=== PATIENT | male | born 1955 | race Caucasian/White ===

== ENCOUNTER → 2018-02-24 | Outpatient (CLI) | payer MEDICAID ==
[~2018-02-24] MED LIST: ACCUNEB SO1.25 MG/1 INH; ADULT LOW DOSE81 MG PO; ALDACTONE25 MG PO; ASPIRIN EC81 M1 PO; CARVEDILOL6.25 MG PO; COREG6.25 MG PO; HYDRALAZINE 5050 M1 PO; HYDROCODON-ACE1 EAC7 PO; IBUPROFEN 400400 M1 PO; IBUPROFEN 800800 M1 PO; IMDUR 30 MG TAB30 M1 PO; IMDUR 30 MG TAB30 MG PO; IMDUR120 MG PO; LEVOTHYROXINE0.05 MG PO; LIPITOR40 MG PO; LISINOPRIL20 MG PO; LISINOPRIL40 MG PO; NICOTINE TRANSD14 M1 TD; NORCO 5-325 TA1 EACH PO; PLAVIX 75 MG TA75 M1 PO; SIMVASTATIN10 MG PO; SPIRONOLACTONE25 M1 PO; SYMBICORT160 MCG/4. INH; SYNTHROID50 MCG PO; VICODIN 5-5001 EACH PO; VITAMIN D1000 UNI1 PO; VITAMIN D5000 UNIT PO; ZESTRIL20 MG PO; ZOFRAN 4 MG ORAL4 MG PO
== END ==
LOC: M.RAD 11:00
DX: M25.522 Pain in left elbow (principal)

== ENCOUNTER 2018-03-29 06:58 | Inpatient (IN) | payer MEDICAID ==
[2018-03-29] VITALS (22 sets, daily range): BP systolic 110–159; BP diastolic 49–85
[~2018-03-29] VITALS: Ht 170.2 cm; Wt 57.6 kg
[~2018-03-29 06:58] MED LIST changes: -HYDROCODON-ACE1 EAC7 PO; -NORCO 5-325 TA1 EACH PO
[2018-03-29 08:43] LABS: ABSOLUTE BASOPHILS 0.1 thou/uL (0.0-0.2); ABSOLUTE EOSINOPHILS 0.2 thou/uL (0.0-0.7); ABSOLUTE LYMPHOCYTES 2.6 thou/uL (0.8-5.3); ABSOLUTE MONOCYTES 0.9 thou/uL (0.0-1.2); ABSOLUTE NEUTROPHILS 4.9 thou/uL (1.6-8.1); BASOPHILS 1.1 %; EOSINOPHILS 2.7 %; HEMATOCRIT 37.6 % (42.0-52.0); HEMOGLOBIN 12.6 gm/dL (14.0-18.0); LYMPHOCYTES 29.8 %; MCH 33.4 pg (26.0-34.0); MCHC 33.4 g/dL (28.0-37.0); MCV 99.8 fL (80.0-100.0); MONOCYTES 10.3 %; MPV 8.6 fl. (7.2-11.1); NUCLEATED RBCS 0 /100WBC; PLATELET COUNT* 230 thou/uL (150-400); POLYS 56.1 %; RBC 3.76 mil/uL (4.50-6.00); RDW-CV 14.8 % (10.5-14.5); WBC 8.7 thou/uL (4.0-11.0)
[2018-03-29 08:49] LABS: CALCIUM 8.7 mg/dL (8.5-10.1); CREATININE 1.5 mg/dL (0.6-1.3); POTASSIUM 3.8 mmol/L (3.5-5.1)
[2018-03-29 15:01] LABS: HEMATOCRIT 33.3 % (42.0-52.0); HEMOGLOBIN 11.1 gm/dL (14.0-18.0); MCHC 33.3 g/dL (28.0-37.0); MCV 99.1 fL (80.0-100.0); MPV 8.2 fl. (7.2-11.1); RBC 3.36 mil/uL (4.50-6.00); RDW-CV 14.9 % (10.5-14.5); WBC 8.6 thou/uL (4.0-11.0)
[2018-03-29 15:06] LABS: POTASSIUM 4.2 mmol/L (3.5-5.1)
--- NOTE | 2018-03-29 15:18 | EKG ---
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 : 1955 Requested By: Thee Miller Order Number: [id number] Reading MD: Bala Lund Measurements Intervals [place] Rate: 43 P: 67 NE: 200 QRS: -55 QRSD: 114 T: 33 QT: 483 QTc: 409 Interpretive Statements Sinus bradycardia LAD, consider left anterior fascicular block Compared to ECG 03/14/2013 21:08:40 Sinus rhythm no longer present T-wave abnormality no longer present Prolonged QT interval no longer present Electronically Signed On 03-29-2018 15:18:20 CDT by Bala Lund [email or web address] <ELECTRONICALLY SIGNED> By: Bala Lund MD, [facility] 03/29/18 1518 0856 0856 Bala Lund MD, [facility] /EPI
--- NOTE | 2018-03-29 18:41 | NUR ---
PT ADMITTED FROM SURGERY. SB ON MONITOR. LOW 30'S. DR SOLIS NOTIFIED. CARDIOLOGY CONSULT ORDERED. DR ELLINGTON D/C'D CLONIDINE. IVF INFUSING. ART LINE IN PLACE. R COROTID SURGICAL AREA C/D/I. PRN PAIN MEDICATION GIVEN PER PT REQUEST. FALL PRECAUTIONS IN PLACE INCLUDING BED ALARM. PROGRESSING TOWARDS SOME GOALS.
[2018-03-30] VITALS (8 sets, daily range): BP systolic 112–187; BP diastolic 49–90
[2018-03-30] MEDS ORDERED: HYDROCODON-ACE1 EAC7 PO (07:10)
[2018-03-30 09:46] LABS: CALCIUM 9.1 mg/dL (8.5-10.1); CREATININE 1.7 mg/dL (0.6-1.3); POTASSIUM 4.1 mmol/L (3.5-5.1)
--- NOTE | 2018-03-30 13:25 | NUR ---
PATIENT DCD HOME WITH INSTRUCTIONS CLEARED WITH INSTRUCTIONS TO RETURN IF SWALLOWING INVOLVED. AT BEDSIDE TOOK PATIENT HOME.
--- NOTE | 2018-03-30 14:40 | OP ---
[facility] [address] [place] [address] OPERATIVE REPORT Name: CAMILO FARIA HAMLET Room: [address] IN M.R.#: [id number] Admission: 03/29/18 Attend Phys: Leatha Doty Discharge: 03/30/18 Date of : 57 Report #: [id number] THIS REPORT FOR: //name// CC: Chuyita Schofield DATE OF SERVICE: 03/29/2018 PREOPERATIVE DIAGNOSIS: Asymptomatic right carotid stenosis. POSTOPERATIVE DIAGNOSIS: Asymptomatic right carotid stenosis. SURGEON: Thee Miller DO. HEATER OPERATOR HELPER: EVIE Collins. ANESTHESIA: General endotracheal anesthesia. PROCEDURE: 1. Right carotid endarterectomy with bovine pericardial patch angioplasty. 2. Intraoperative arterial duplex. ESTIMATED BLOOD LOSS: 100 mL. SPECIMEN: Plaque. COMPLICATIONS: None. CONDITION: Stable. DISPOSITION: ICU. INDICATIONS FOR THE PROCEDURE AND CONSENT: The patient is a 62-year-old male who presented with peripheral vascular disease and carotid stenosis. He is identified to have a severe greater than 70% stenosis of the right internal carotid artery. Recommendation for right carotid endarterectomy was made. Risks and benefits were discussed, infection, bleeding, need for additional procedures, nerve injury, stroke, heart attack and . The patient wished to proceed, was consented and scheduled. PROCEDURE IN DETAIL: After timeout was performed, the patient was placed in supine position with sterile prep and drape of the anterior neck and chest wall. Semi-transverse incision was made anterior to the sternocleidomastoid and dissection carried down using Bovie electrocautery. The facial vein was identified, dissected sharply and then ligated and divided between 2-[address] [address] OPERATIVE REPORT Name: CAMILO FARIA Room: [address] IN .R.#: [id number] Admission: 03/29/18 Attend Phys: Leatha Doty Discharge: 03/30/18 Date of : 57 Report #: [id number] sutures. Common carotid artery was then identified and dissected sharply and controlled proximally with a Shara tourniquet. The external and internal carotid arteries were then sharply dissected and a small vessel was placed posterior to the internal carotid artery to help with control. The external carotid artery was then controlled with vessel loop. The patient was then systemically heparinized with 6000 units of heparin, allowed to circulate for 2 minutes. Internal, external and common carotid arteries then controlled and 11 blade and Raman scissors used to make a longitudinal arteriotomy. A #14 shunt was advanced into the internal carotid artery without difficulty and noted to backbleed well and then placed within the common carotid artery and secured. Plaque elevator was then used to perform the endarterectomy and the external carotid artery was everted well. The end portion tapered nicely. However, the intimal flap appeared to be somewhat mobile. I tacked this with two 7-0 Prolene sutures on the back wall to assist with immobilization. The endarterectomized portion was then meticulously cleaned with forceps and all debris was removed. The area was irrigated multiple times with hep saline and no additional flaps or debris was identified. A 0.8 x 8 bovine pericardial patch was then selected and sutured in place with 6-0 Prolene. Once this was near complete, the shunt was then removed and clamps reapplied. The area was then irrigated again to remove any potential debris and the external and common carotid arteries were allowed to bleed and the area irrigated once more and then the patch closed completely. Blood flow was then restored to the external carotid artery without difficulty, without concern and then the blood flow restored to the internal carotid artery. Patch was noted to be hemostatic. I then performed intraoperative duplex, which demonstrated appropriate waveforms and no intimal debris or anatomic concerns. Please see saved images. Wound was then copiously irrigated. There was a small amount of oozing from the patch in the mid portion on the inferior side and a 7-0 Prolene was used to achieve hemostasis in this area. The wound was then again irrigated. Jj was applied. The patient was administered 50 units of protamine as a reversal agent. Once the wound was dry the wound was then closed in layers using 2-0 Vicryl, 3-0 Vicryl and 4-0 Monocryl suture. Dermabond dressing was applied. The patient tolerated the procedure well. All lap, needle, and instrument counts correct. <ELECTRONICALLY SIGNED> By: Thee Miller DO 03/30/18 1440 1405 1426Thee Miller DO /nt
--- NOTE | 2018-04-05 15:09 | PATH ---
[facility] [address] [place] [address] PATHOLOGY RPT PROCEDURE Name: CAMILO SCHAEFFER Room: [address] IN M.R.#: [id number] Admission: 03/29/18 Date of : 57 Discharge: 03/30/18 Report #: [id number] Path Case #: [id number] LCA Accession Number: [id number] . 01 Material submitted: . RIGHT CAROTID PLAQUE . 01 Clinical history: . Right carotid plaque . 02 Diagnosis: Right carotid plaque: - Fibrointimal atherosclerotic plaque with extensive calcification. (BASHIR:norman; 04/02/2018) QMS/04/02/2018 . 02 Electronically signed: . Bishnu Berrios MD, Pathologist NPI- [id number] . 01 Gross description: . Received in formalin "Camilo Schaeffer, right carotid plaque" is a bifurcated and previously opened segment of atherosclerotic plaque (with calcific changes) measuring 3.2 cm in length with diameter ranging from 0.3 cm-1.4 cm. There is 60% stenosis of the lumen. Automatic Corn Grinder Operator sections are submitted as A1. (ALEJANDRA; 03/30/2018) JBR/JBR . 02 Pathologist provided ICD-10: I65.21 . 02 CPT . 437862 Performed at: [address], [place] [id number] MD Jose Owen MD Phone: [phone] Performed at: 02 [facility] [address], [place], [place] [address] MD Bishnu Berrios MD Phone: [phone]
== END 2018-03-30 13:35 | disposition home or self-care (01) | DRG 39 ==
LOC: M.PRE 06:58 → M.TBA 07:57 → M.PRE 10:40 → M.ICU 15:12
PROVIDERS: Internal Medicine; Surgery; ADMIT Internal Medicine
PROC: 03CK0ZZ Extirpation of Matter from Right Internal Carotid Artery, Open Approach (ICD-10-PCS; principal; 2018-03-29)
PROC: 03UK0JZ Supplement Right Internal Carotid Artery with Synthetic Substitute, Open Approach (ICD-10-PCS; principal; 2018-03-29)
PROC: 039 Upper Arteries, Drainage (ICD-10-PCS; principal; 2018-03-29)
DX: I65.21 Occlusion and stenosis of right carotid artery (principal); I73.9 Peripheral vascular disease, unspecified; E78.5 Hyperlipidemia, unspecified; E03.9 Hypothyroidism, unspecified; F17.210 Nicotine dependence, cigarettes, uncomplicated; J44.9 Chronic obstructive pulmonary disease, unspecified; I12.9 Hypertensive chronic kidney disease with stage 1 through stage 4 chronic kidney disease, or unspecified chronic kidney disease; N18.9 Chronic kidney disease, unspecified; Z79.899 Other long term (current) drug therapy; Z88.0 Allergy status to penicillin; Z95.820 Peripheral vascular angioplasty status with implants and grafts; Z82.49 Family history of ischemic heart disease and other diseases of the circulatory system

== ENCOUNTER 2018-06-01 10:49 | Inpatient (IN) | payer MEDICAID ==
[~2018-06-01] VITALS: Ht 180.3 cm; Wt 56.2 kg
[~2018-06-01 10:49] MED LIST changes: +HYDROCODON-ACE1 EAC7 PO
[2018-06-01 11:00] VITALS: BP 160/88
[2018-06-01 11:25] LABS: ABSOLUTE BASOPHILS 0.1 thou/uL (0.0-0.2); ABSOLUTE EOSINOPHILS 0.3 thou/uL (0.0-0.7); ABSOLUTE MONOCYTES 0.8 thou/uL (0.0-1.2); ABSOLUTE NEUTROPHILS 4.8 thou/uL (1.6-8.1); BASOPHILS 0.9 %; EOSINOPHILS 3.4 %; HEMATOCRIT 40.6 % (42.0-52.0); HEMOGLOBIN 13.8 gm/dL (14.0-18.0); LYMPHOCYTES 25.6 %; MCV 99.9 fL (80.0-100.0); MONOCYTES 9.6 %; MPV 8.1 fl. (7.2-11.1); NUCLEATED RBCS 0 /100WBC; PLATELET COUNT* 257 thou/uL (150-400); POLYS 60.5 %; RBC 4.06 mil/uL (4.50-6.00); RDW-CV 14.6 % (10.5-14.5); WBC 7.9 thou/uL (4.0-11.0)
[2018-06-01 11:32] LABS: CREATININE 1.6 mg/dL (0.6-1.3); POTASSIUM 3.6 mmol/L (3.5-5.1)
--- NOTE | 2018-06-01 14:38 | EKG ---
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
[2018-06-01 16:22] LABS: MCH 33.6 pg (26.0-34.0); MCHC 33.7 g/dL (28.0-37.0); MCV 99.8 fL (80.0-100.0); MPV 8.2 fl. (7.2-11.1); RBC 3.3 mil/uL (4.50-6.00); RDW-CV 14.6 % (10.5-14.5); WBC 7.9 thou/uL (4.0-11.0)
[2018-06-01 16:25] LABS: HEMOGLOBIN 11.1 gm/dL (14.0-18.0)
[2018-06-01 16:47] LABS: CALCIUM 8.2 mg/dL (8.5-10.1); CREATININE 1.4 mg/dL (0.6-1.3); POTASSIUM 4.3 mmol/L (3.5-5.1)
[2018-06-01 17:43] VITALS: BP 161/91
--- NOTE | 2018-06-01 18:20 | NUR ---
PT TO ROOM VIA CART. PT ORIENTED TO ROOM,CALL LIGHT WITHIN REACH. PT DENIES PAIN,REPORTS NAUSEA. MEDS GIVEN ORDERED. AT BS AND UPDATED ON CARE
[2018-06-01 20:00] VITALS: BP 135/81
[2018-06-01 22:00] VITALS: BP 120/68
[2018-06-02] VITALS: BP 111/70
--- NOTE | 2018-06-02 04:56 | NUR ---
ASSUMED OF PT AT 1900 PT ALERT AND ORIENTED X4 VS AND ASSESSMENT STABLE, Q1H NEUROVASCULAR CHECKS TO THE RLE THEN Q4H COMPLETED PT SB TO NS ON THE MONITOR. PT HAVING N/V AT THE BEGINING OF THE SHIFT CONTACTED DR ALVARADO OBTAINED ORDERS FOR PO PHENERGAN AND ADMINISTERED PTS NAUSEA RESOLVED AND PT HAD NO FURTHER COMPLAINTS AND SLEPT THROUGH THE NIGHT. WILL CONTINUE PLAN OF CARE
[2018-06-02 10:00] VITALS: BP 122/70
[2018-06-02 10:08] VITALS: BP 109/56
[2018-06-02] MEDS ORDERED: NORCO 5-325 TA1 EACH PO (10:37)
--- NOTE | 2018-06-02 11:14 | NUR ---
PT CARE ASSUMED AFTER REPORT. ASSESSMENT COMPLETE. SR ON MONITOR. PT DISCHARGED HOME. HERE TO TRANSPORT. DISCHARGE INSTRUCTIONS WITH EXPLAINATION TO PT AND HIS SHANNON. BOTH VERBALIZED UNDERSTANDING. PRESCRIPTION FOR NORCO GIVEN TO PT. IV ACCESS REMOVED. SURGICAL AREA C/D/I UPON LEAVING. PT TOOK ALL BELONGINGS.
--- NOTE | 2018-06-19 12:02 | OP ---
[address] [address] OPERATIVE REPORT Name: JEAN SCHAEFFER Room: [address] IN M.R.#: [id number] Admission: 06/01/18 Attend Phys: Leatha Doty Discharge: 06/02/18 Date of : 57 Report #: [id number] THIS REPORT FOR: //name// CC: Ahmaleatha Schofield DATE OF SERVICE: 06/01/2018 PREOPERATIVE DIAGNOSES: Peripheral vascular disease, claudication, right lower extremity. POSTOPERATIVE DIAGNOSES: Peripheral vascular disease, claudication, right lower extremity. SURGEON: Thee Miller DO. CASING IN LINE FEEDER: Orthopedic resident, PGY-1. ANESTHESIA: General endotracheal anesthesia. ESTIMATED BLOOD LOSS: 500 mL. SPECIMEN: None. IMPLANT: None. COMPLICATIONS: None. CONDITION: Stable. DISPOSITION: ICU. INDICATIONS FOR THE PROCEDURE AND CONSENT: Jean Schaeffer is a 63-year-old man presented with severe peripheral vascular disease and carotid stenosis. He underwent carotid endarterectomy and is subsequently here for right common femoral endarterectomy. Risks and benefits were discussed, infection, bleeding, heart attack, stroke, , limb loss, need for additional procedures. The patient wished to proceed, was consented and scheduled. PROCEDURE IN DETAIL: After timeout was performed, the patient was placed in supine position with sterile prep and drape of the anterior and bilateral groins, bilateral thighs. A semi-transverse incision was made overlying the common femoral artery and the external iliac artery, the superficial femoral artery and profunda vessels were all wrapped with vessel loops. Several large collaterals were also encircled with Raman vessel loops. The patient was systemically heparinized with 6000 units of heparin. The external iliac artery [address] [address] OPERATIVE REPORT Name: JEAN SCHAEFFER Room: [address] IN M.R.#: [id number] Admission: 06/01/18 Attend Phys: Leatha Doty Discharge: 06/02/18 Date of : 57 Report #: [id number] was noted to be quite calcified and a large profunda clamp was required to clamp it to make the pulse go away. The vessel loops were then pulled up and an 11 blade and Raman scissors were used to make a longitudinal arteriotomy. Plaque elevator was used to remove the femoral plaque, which was nearly occlusive. A large Meseret clamp was used to remove the external iliac plaque proximally with majority of blood loss here. Once this was all removed, the clamp was reapplied. The clamp had to be clamped and unclamped several times to limit blood loss during removal of the external iliac plaque. Once this was accomplished, the clamp was reapplied and noted to be hemostatic. The profunda and superficial femoral vessels were noted to backbleed well. The endarterectomized portion was cleaned with forceps and irrigated with hep saline. Bovine pericardial patch was then selected and sutured in place with 5-0 Prolene suture without difficulty. The very proximal portion of the vessel was noted to be quite thin. The clamp was moved up and it just appeared to be somewhat tenuous due to multiple clamping and unclamping in this area, somewhat traumatized. Once the patch was in place, the blood flow was allowed to backbleed from the profunda vessel. There was noted to be bleeding at the proximal end of the patch. This was remedied with a 5-0 Prolene U stitches and eventually a pledget was also required, additional blood loss was incurred here. Once the pledget was in place, it appeared to be nearly hemostatic, but did continue to ooze, so the patient was administered 50 units of protamine after the blood flow was noted by Doppler to be excellent into the SFA and profunda vessel and noted to have a nonobstructive signal. Jj was applied and pressure was held for hemostasis. After significant time lapse approximately 10 minutes, the patch was noted to still be oozing quite a bit and did not appear to be any clot within the wound. An additional 10 units of protamine was administered. The 5-0 Prolene was pulled up to tighten the suturing and a [id number] 5-0 Prolene was applied and this was sutured more tightly. This remedied some of the oozing, but there was still appear to be oozing at the suture line at every needle puncture site. The pledgeted area was also noted oozing some, a 6-0 U-stitch was applied to the side portion of the pledget. This appeared to decrease the amount of oozing in this area as well. I then applied BioGlue to the entire suture line and held pressure for hemostasis. Once this was done, there did appear to be hemostatic and acceptable for closure. Wound was then copiously irrigated with antibiotic saline and closed in layers using 2-0 Vicryl, 3-0 Vicryl and 4-0 Monocryl suture. Dermabond dressing was applied. The patient tolerated the procedure well. Lap, needle and instrument counts correct. <ELECTRONICALLY SIGNED> By: Jesus Cardoza DO 06/19/18 1202 1546 1717Jorichard Miller DO /nt
--- NOTE | 2018-06-29 14:56 | PATH ---
[facility] [address] [place] [address] PATHOLOGY RPT PROCEDURE Name: JEAN SCHAEFFER Room: [address] IN M.R.#: [id number] Admission: 06/01/18 Date of : 57 Discharge: 06/02/18 Report #: [id number] Path Case #: [id number] LCA Accession Number: [id number] . 01 Material submitted: . RIGHT FEMORAL ARTERY PLAQUE . 01 Clinician provided ICD-10: I70.201 . 01 Clinical history: . Atherosclerosis of arteries of right lower extremity . 02 Diagnosis: Right femoral artery plaque: - Calcified atheromatous plaque with associated vessel wall. (MAP/db; 06/05/18) LBQ/06/05/2018 . 02 Electronically signed: . Baltazar Easton MD, Pathologist NPI- [id number] . 01 Gross description: . The specimen is received in formalin, labeled "Jean Schaeffer, right femoral artery plaque", are four irregular fragments of renteria-white firm calcified soft tissues ranging from 0.9 cm up to 5.2 cm in greatest dimension and measuring 3.8 x 2.0 x 1.0 cm in aggregate. The largest fragment is consistent with a previously opened surgical structure. A account service representative section is submitted in A1 after decalcification. ([facility]; 06/04/2018) SHS/SHS . 02 Pathologist provided ICD-10: I74.3 . 02 CPT . 704889, 587240 Specimen Comment: Report sent to ,DR ALVARADO / DR CAMACHO Performed at: [address], [place], [place] [id number] MD Jose Owen MD Phone: [phone] Performed at: [address], [place], [place] [id number] MD Bishnu Berrios MD Phone: [phone]
== END 2018-06-02 11:30 | disposition home or self-care (01) | DRG 272 ==
LOC: M.TBA 10:49 → M.PRE 11:45 → M.ICU 17:35
PROVIDERS: Surgery; ADMIT Internal Medicine
DX: I73.9 Peripheral vascular disease, unspecified (principal); I10 Essential (primary) hypertension; I25.10 Atherosclerotic heart disease of native coronary artery without angina pectoris; E03.9 Hypothyroidism, unspecified; E78.5 Hyperlipidemia, unspecified; F17.210 Nicotine dependence, cigarettes, uncomplicated; Z95.1 Presence of aortocoronary bypass graft; Z95.5 Presence of coronary angioplasty implant and graft; Z79.02 Long term (current) use of antithrombotics/antiplatelets; Z95.820 Peripheral vascular angioplasty status with implants and grafts; Z79.82 Long term (current) use of aspirin; Z79.899 Other long term (current) drug therapy; Z82.49 Family history of ischemic heart disease and other diseases of the circulatory system

== ENCOUNTER → 2018-07-27 | Outpatient (CLI) | payer MEDICAID ==
[~2018-07-27] MED LIST changes: +NORCO 5-325 TA1 EACH PO
== END ==
LOC: M.ULTRA 12:42
DX: I70.213 Atherosclerosis of native arteries of extremities with intermittent claudication, bilateral legs (principal)

== ENCOUNTER → 2019-02-12 | Outpatient (CLI) | payer MEDICAID | LOC: M.ULTRA 02-08 10:00 | DX: I70.213 Atherosclerosis of native arteries of extremities with intermittent claudication, bilateral legs (principal) ==

== ENCOUNTER 2019-07-24 15:27 | Inpatient (IN) | payer OTHER, MEDICAID ==
[~2019-07-24] VITALS: Ht 175.3 cm; Wt 57.2 kg
--- NOTE | ~2019-07-24 | OP ---
[facility] [address] [place] [address] OPERATIVE REPORT Name: CAMILO FARIA HAMLET Room: [address] IN M.R.#: [id number] Admission: 07/24/19 Attend Phys: Leatha Doty Discharge: Date of : 57 Report #: [id number] THIS REPORT FOR: //name// CC: Belia Schofield DATE OF SERVICE: 07/25/2019 PREOPERATIVE DIAGNOSES: 1. Urinary retention. 2. Inability to place Mckeon catheter. POSTOPERATIVE DIAGNOSES: 1. Urinary retention. 2. Inability to place Mckeon catheter. PROCEDURES PERFORMED: Cystoscopy with difficult Mckeon catheter placement. SURGEON: Enrique Cole M.D. VP DESIGN: Naomi Nguyen NP BRIEF HISTORY: The patient is a 64-year-old male who was admitted to [facility] on 07/24/2019. He was intubated, and a temperature probe Mckeon catheter was placed. Over the night with minimal urine output when he was noted to have blood coming from the urethra. His temperature probe catheter was removed and the procedure staff attempted to replace his Mckeon catheter. This was not successful. Urology was therefore consulted. An attempt was made by the nurse practitioner to place a Mckeon catheter, but resistance was met. Given the above, informed consent was obtained from his surrogate decision maker, his , for bedside cystoscopy and catheter placement. PROCEDURE IN DETAIL: The patient was in the Intensive Care Unit, intubated and sedated. His genitalia were prepped and draped in the usual sterile fashion. A flexible cystoscope was advanced under direct vision and irrigation into the anterior urethra. There was some clot that had collected in the proximal portion of the pendulous urethra. As the cystoscope was advanced, there appeared to be a bulbar false passage as well as a narrowed segment of the bulbar urethra. The cystoscope was able to be advanced beyond the bulbar urethra, however, into the prostatic urethra. The bladder neck was somewhat tight, but the cystoscope was able to be advanced into the bladder without significant difficulty. There were noted to be moderate bladder wall trabeculations. At this time, a 0.035 sensor wire was advanced through the cystoscope and the cystoscope was removed. Attempts were then made advancing an 18-Gambian Councill-tip catheter as well as a 16-Gambian Councill-tip catheter over the wire and into the bladder. The catheters would not advance. As such, [place] [address] OPERATIVE REPORT Name: CAMILO FARIAMOND Room: [address] IN [facility].#: [id number] Admission: 07/24/19 Attend Phys: Leatha Doty Discharge: Date of : 57 Report #: [id number] the cystoscope was reinserted alongside the wire and in appropriate location, the wire was confirmed within the bladder. Additional attempts were made then at advancing the 16-Gambian catheter over the wire, but these were also unsuccessful. Therefore, the sensor wire was removed and the cystoscope was re-advanced to the bladder. An Amplatz Super Stiff wire was advanced through the cystoscope and into the bladder under direct vision. The cystoscope was removed leaving the wire in place. Additional attempts were made then, at advancing both the 18-Gambian and 16-Gambian Councill-tip catheter over the Super Stiff wire, but resistance was met which would not permit advancement despite the stiffer wire. The cystoscope was then reinserted following the wire through the urethra and into the bladder, again confirming appropriate placement. It was unclear why the catheters would not advance over the wire. The urethra did appear to be relatively widely patent and so the decision was made to remove the Amplatz wire and to attempt to place an 18-Gambian Coude tip catheter into the bladder. A Coude catheter was able to be advanced into the bladder with moderate difficulty. The catheter balloon was inflated with 10 mL of sterile water. The catheter was irrigated several times with a piston syringe to confirm appropriate placement. It is unclear why the Councill tip catheters would not advance over the wire, but perhaps identifying the true lumen with the cystoscope also provided some degree of dilation. The catheter was then placed to gravity drainage system. The patient tolerated the procedure well. COMPLICATIONS: None. ESTIMATED BLOOD LOSS: Less than 2 mL. IV FLUIDS: Crystalloid. DRAINS: An 18-Gambian Coude tip catheter. SPECIMENS: None. By: [id number] Cole MD /nt
[~2019-07-24 15:27] MED LIST changes: +NORCO 5-325 TA1 EAC2 PO; -NORCO 5-325 TA1 EACH PO; -VITAMIN D1000 UNI1 PO; +VITAMIN D21250 MC1 PO
[2019-07-24 16:10] VITALS: BP 171/116; BP 224/149
--- NOTE | 2019-07-24 16:25 | NUR ---
VERSED GIVEN EN ROUTE AT 1512, NARCAN 4 GIVEN EN ROUTE AT 1518 BY EMS.
[2019-07-24 17:24] LABS: HEMATOCRIT 41.1 % (42.0-52.0); MCH 33.5 pg (26.0-34.0); MCHC 34.1 g/dL (28.0-37.0); MCV 98.4 fL (80.0-100.0); MPV 7.6 fl. (7.2-11.1); NUCLEATED RBCS 0 /100WBC; PLATELET COUNT* 341 thou/uL (150-400); RBC 4.18 mil/uL (4.50-6.00); RDW-CV 14.1 % (10.5-14.5); WBC 23.6 thou/uL (4.0-11.0)
[2019-07-24 17:32] LABS: URINE BILIRUBIN NEGATIVE (Negative); URINE BLOOD 3+ (Negative); URINE CLARITY TURBID; URINE COLOR RED; URINE GLUCOSE-RANDOM TRACE (Negative); URINE KETONES NEGATIVE (Negative); URINE LEUKOCYTES-REFLEX NEGATIVE (Negative); URINE NITRITE-REFLEX NEGATIVE (Negative); URINE PROTEIN 3+ (Negative); URINE UROBILINOGEN 0.2 E.U./dl (0.2-1.0)
[2019-07-24 17:34] LABS: APTT 27.1 Seconds (25.0-31.3); CALCIUM 8.7 mg/dL (8.5-10.1); CREATININE 3.8 mg/dL (0.6-1.3); POTASSIUM 3.5 mmol/L (3.5-5.1); PROTIME 10.6 Seconds (9.20-11.50)
[2019-07-24 17:36] LABS: ALCOHOL < 10 mg/dL (<10); SALICYLATE 9.5 mg/dL (2.8-20.0)
[2019-07-24 17:42] LABS: BACTERIA-REFLEX 1-9 Few /HPF (None Seen); CASTS None Seen /LPF (None Seen); CRYSTALS None Seen /LPF (None Seen); SQUAMOUS 0-3 Few /LPF (0-3); URINE RBC >20 Many /HPF (0-2); URINE WBC-REFLEX None Seen /HPF (0-5)
[2019-07-24 17:45] LABS: ALBUMIN 2.7 g/dL (3.4-5.0); TOTAL BILIRUBIN 0.4 mg/dL (<0.1-1.0); TOTAL PROTEIN 6.8 g/dL (6.4-8.2)
[2019-07-24 17:49] LABS: AMP/METHAMP Negative (Negative); BARBITURATES Negative (Negative); BENZODIAZEPINES Negative (Negative); COCAINE Negative (Negative); METHADONE Negative (Negative); OPIATES Negative (Negative); PCP Negative (Negative); THC POSITIVE (Negative)
[2019-07-24 18:15] LABS: ABSOLUTE LYMPHOCYTES 1.4 thou/uL (0.8-5.3); ABSOLUTE MONOCYTES 0.7 thou/uL (0.0-1.2); ABSOLUTE NEUTROPHILS 21.5 thou/uL (1.6-8.1)
[2019-07-24 18:16] LABS: PLATELET ESTIMATE ADEQUATE
[2019-07-24 18:23] LABS: BE -15.5 mmol/L (-2 to +3); PO2 88.5 mmHg (75.0-100.0)
[2019-07-24] MEDS ORDERED: VITAMIN B-121000 MC2 SUBLING (18:50)
[2019-07-24] MEDS ORDERED: ZANTAC 150MG T150 M1 PO (18:51)
[2019-07-24] MEDS ORDERED: SPIRONOLACT/HCT1 TA1 PO (18:51)
[2019-07-24] MEDS ORDERED: NORVASC 2.5 MG2.5 M1 PO (18:52)
[2019-07-24] MEDS ORDERED: LEVO-T50 MCG PO (18:52)
[2019-07-24] MEDS ORDERED: LISINOPRIL-HCT1 EAC2 PO (18:52)
[2019-07-24 19:34] LABS: CALCIUM 8.5 mg/dL (8.5-10.1); CREATININE 3.9 mg/dL (0.6-1.3); MAGNESIUM 2.7 mg/dL (1.8-2.4); POTASSIUM 3.5 mmol/L (3.5-5.1)
[2019-07-24 20:45] VITALS: BP 126/90
[2019-07-25] VITALS (50 sets, daily range): BP systolic 105–187; BP diastolic 67–129
[2019-07-25 04:14] LABS: ABSOLUTE BASOPHILS 0.2 thou/uL (0.0-0.2); ABSOLUTE LYMPHOCYTES 1.1 thou/uL (0.8-5.3); ABSOLUTE MONOCYTES 1.9 thou/uL (0.0-1.2); ABSOLUTE NEUTROPHILS 19.8 thou/uL (1.6-8.1); BASOPHILS 0.7 %; HEMATOCRIT 39.2 % (42.0-52.0); LYMPHOCYTES 4.7 %; MCH 32.4 pg (26.0-34.0); MCHC 33.2 g/dL (28.0-37.0); MCV 97.7 fL (80.0-100.0); MONOCYTES 8.3 %; MPV 8.1 fl. (7.2-11.1); NUCLEATED RBCS 0 /100WBC; POLYS 86.3 %; RBC 4.02 mil/uL (4.50-6.00); RDW-CV 14.2 % (10.5-14.5); WBC 22.9 thou/uL (4.0-11.0)
[2019-07-25 04:23] LABS: PLATELET COUNT* 253 thou/uL (150-400)
[2019-07-25 04:45] LABS: ALBUMIN 2.5 g/dL (3.4-5.0); CALCIUM 8.8 mg/dL (8.5-10.1); CREATININE 4.1 mg/dL (0.6-1.3); POTASSIUM 3.7 mmol/L (3.5-5.1); TOTAL BILIRUBIN 0.3 mg/dL (<0.1-1.0)
--- NOTE | 2019-07-25 06:40 | NUR ---
PATIENT RECIEVED FROM ED AT 2052 BY EVELIN VALENTINE. PATIENT ARRIVED TO UNIT INTUBATED ON VENTILATOR. LYMAN CATHETER WITH TEMP PROBE PLACED IN ED WITH TRAUMATIC INSERTION. LYMAN BAG CONTAINED ROUGHLY 50ML OF BLOOD IN THE BAG, PATIENT WAS SEEN URINATING AROUND THE CATHETER ONTO THE SHEETS. SPOKE WITH DR. ALVARADO ABOUT SITUATION. ORDERS RECIEVED TO REMOVE CATHETER AND ATTEMPT TO PLACE A NEW ONE TO GET URINE TO DRAIN PROPERLY. LYMAN WITH TEMP PROBE REMOVED, UNSUCCESSFUL IN ATTEMPT TO REINSERT NEW CATHETER. UROLOGY CONSULTED FOR THE ISSUE. PATIENT HAS AN EXTERNAL CATHETER IN PLACE WITH NO URINE PRESENT IN UROMETER BAG. PATIENT REQUIRED INCREASE IN SEDATION. PROPOFOL TITRATED UP TO 40 MCG/KG/MIN. ORDERS RECIEVED FOR VERSED PUSHES. VERSED PROVING TO BE MORE EFFECTIVE IN CONTROLLING PATIENT'S THRASHING AND AGITATION THAN PROPOFOL ALONE. HYDRALAZINE ORDER OBTAINED FOR INCREASING BP. FAMILY AT BEDSIDE UPON ADMISSION. FAMILY EXPRESSES CONCERNS WITH FINANCES AND STATES THAT THE PATIENT HAS NOT TAKEN ANY MEDICATION FOR OVER A MONTH. REFFERED TO CASE MANAGEMENT. NO OTHER SIGNIFICANT EVENTS THIS SHIFT. CRISELDA
--- NOTE | 2019-07-25 08:00 | NUR ---
RECEIVED REPORT AND ASSUMED CARE OF PT @ 0700.PT REMAINS INTUBATED PER ORDERED SETTINGS @ 23 AT THE LIP.PT SEDATED WITH PROPOFOL PER TITRATION ORDERS. PT NOT ABLE TO FOLLOW COMMANDS.SENIOR MEDIA BUYER IN PLACE, TRACING SR.EXTERNAL LYMAN IN PLACE UNTIL SEEN BY UROLOGY.NG SECURE IN PLACE @ 55 WITH CONTINUOUS LOW SUCTION.PT LEFT RESTING WITH FALL PRECAUTIONS IN PLACE.WILL CONTINUE TO MONITOR.
[2019-07-25 09:45] LABS: PCO2 26.7 mmHg (35.0-45.0); PO2 95.9 mmHg (75.0-100.0); pH 7.383 (7.340-7.450)
--- NOTE | 2019-07-25 11:09 | NUR ---
WOUND CARE NOTE: CONSULT RECEIVED FOR LOW JULIENNE PATIENT WITH JULIENNE SCALE OF 12. PATIENT ON TURNING SCHEDULE APPROPRIATELY. TURNED PATIENT'S LOW AIR LOSS MATTRESS ON. CARE PLAN IN PLACE. RECOMMEND TURN Q2 HOURS, ELEVATE HEELS OFF BED BARRIER OINTMENT BID AND PRN ENCOURAGE GOOD NUTRTION/HYDRATION ONCE ABLE LIMIT HOB <30 DEGREES IF POSSIBLE LIMIT LAYERS OF LINEN UNDER PATIENT
[2019-07-25 14:25] LABS: BE -8.4 mmol/L (-2 to +3); PCO2 25.7 mmHg (35.0-45.0); PO2 63.8 mmHg (75.0-100.0); pH 7.385 (7.340-7.450)
--- NOTE | 2019-07-25 14:57 | NUR ---
PT PASSED WEENING TRIAL AND EXTUBATED @ 1450.NO COMPLICATIONS REPORTED.PT PLACED ON 2L O2 NC.
--- NOTE | 2019-07-25 15:49 | EKG ---
[place] [address] ELECTROCARDIOGRAM REPORT Name: CAMILO FARIA Room: [address] ADM IN M.R.#: [id number] Admission: 07/24/19 Attend Phys: Leatha Doty Discharge: Date of : 57 Report #: [id number] THIS REPORT FOR: //name// [facility] ED Test Date: 2019-07-24 Test Time: 15:42:38 Pat Name: CAMILO FARIA Department: Room: [facility] Gender: M Training Executive: : 1955 Requested By: Isaac Ramsay Order Number: [id number] MD: Dontae Weeks Measurements Intervals [place] Rate: 118 P: 83 [place]: 157 QRS: -86 QRSD: 96 T: 64 QT: 355 QTc: 498 Interpretive Statements Sinus tachycardia LAE, consider biatrial enlargement Left anterior fascicular block Abnormal R-wave progression, late transition Borderline prolonged QT interval Compared to ECG 06/01/2018 11:39:34 Sinus bradycardia no longer present Electronically Signed On 07-25-2019 15:48:44 COOLER CONVEYOR LOADER by Dontae Weeks [email or web address] <ELECTRONICALLY SIGNED> By: Dontae Weeks MD, [facility] 07/25/19 1548 1542 1542 Dontae Weeks MD, [facility] /EPI
--- NOTE | 2019-07-25 16:49 | NUR ---
SW met with pt nurse prior to ICU rounds: Pt lives at home with . Pt intubated, restless and in restraints at wrist, sedation as needed. Pt has NG tube, madrigal (external), and cardio and urology consultations. SW received consult for pt/family financial concern and med assist needed as well. SW spoke with pt who confirmed that she and pt struggle financially. Pt is on disability and pt is retired, pt explained that they have an over $400 spend down to meet each month and pt says that they are unable to cover that cost. SW provided resources, referrals and emotional support. SW to continue to follow to assist with safe dc planning.
--- NOTE | 2019-07-25 18:35 | NUR ---
PT IS A/O TO SELF BUT ABLE TO COMMUNICATE WELL WITH NURSE.TWINE WINDER IN PLACE WITH NO CHANGES.PT REMAINS ON 2L O2 NC.PROGRESSING TOWARDS GOALS.NO C/O PAIN.PT IS CALM AND COOPERATIVE WITH NURSES.PT GOT UPSET WITH SON IN ROOM AND BEGAN YELLING AND THREATENING SON.NURSE MADE FAMILY LEAVE.PT APOLOGIZED TO NURSE FOR HIS BEHAVIOR.PTS MAIN CONCERN IS BEING ABLE TO DRINK SOME WATER.MRI COMPLETED.RENAL US COMPELTED.CXR COMPLETED.MRSA SWAB COLLECTED.UA COLLECTED.LYMAN PLACED THIS AFTERNOON BY UROLOGY WITH CYSTOSCOPY-CONSENT OBTAINED FROM .NG REMOVED DURING EXTUBATION.EEG COMPLETED. PT INFORMED OF PLAN OF CARE AND COMMUNICATES UNDERSTANDING BUT NEEDS FREQUENT REINFORCEMENT.CALL LIGHT AND FALL PRECAUTIONS IN PLACE.WILL CONTINUE TO MONITOR FOR DURATION OF SHIFT.
[2019-07-26] VITALS (31 sets, daily range): BP systolic 136–177; BP diastolic 71–97
[2019-07-26 04:40] LABS: ALBUMIN 2.3 g/dL (3.4-5.0); CALCIUM 7.6 mg/dL (8.5-10.1); CREATININE 4.6 mg/dL (0.6-1.3); MAGNESIUM 2.2 mg/dL (1.8-2.4); POTASSIUM 3.6 mmol/L (3.5-5.1); TOTAL BILIRUBIN 0.4 mg/dL (<0.1-1.0); TOTAL PROTEIN 4.8 g/dL (6.4-8.2)
[2019-07-26 04:55] LABS: MCH 33.2 pg (26.0-34.0); MCHC 34.4 g/dL (28.0-37.0); MCV 96.4 fL (80.0-100.0); MPV 8.7 fl. (7.2-11.1); RBC 3.01 mil/uL (4.50-6.00); RDW-CV 13.9 % (10.5-14.5); WBC 14.1 thou/uL (4.0-11.0)
--- NOTE | 2019-07-26 07:00 | NUR ---
PROGRESSING TOWARDS GOALS, AWAKE MOST OF NOC, A/0X4 AND FORGETFULL, EASILY REORIENTED TO PLACE, TIME, AND SITUATION, TOLERATING PO INTAKE WITHOUT S/S OF ASPIRATION, USING CALL LIGHT APPROPRIATELY AT TIMES, NSR TRACING DELIVERY COORDINATOR, NO S/S OF RESP DISTRESS, REMAINS ON ROOM AIR, AWAKE, ALERT, WATCHING TV, AND CONVERSATIVE THIS AM, SAFETY MAINTAINED, BED ALARM ON.
--- NOTE | 2019-07-26 07:37 | CON ---
[address] [address] CONSULTATION Name: CAMILO FARIA HAMLET Room: [address] ADM IN M.R.#: [id number] Admission: 07/24/19 Attend Phys: Leatha Doty Discharge: Date of : 57 Report #: [id number] THIS REPORT FOR: //name// CC: Belia Schofield DATE OF SERVICE: 07/25/2019 ATTENDING PHYSICIAN: Warren Schofield DO REASON FOR EVALUATION: Suspected aspiration pneumonitis in the patient who had emergent requirement for intubation due to seizure. HISTORY OF PRESENT ILLNESS: Chart reviewed, patient examined. This is a 64-year-old fairly extensive medical history, has known vasculopathy, hypertension, who had experienced illness for the last 3 days prior to admission including primarily GI related with nausea with intermittent dry heaving and he noted some visual disturbances. He was checked and found to have a markedly elevated systolic blood pressure, subsequently developed agitation and seizure. So, he was brought emergently due to unstable hemodynamic situation. He was intubated in the Intensive Care Unit. Initial lab was notable for elevated lactic acid of 4.9, creatinine at 3.8, white count was elevated at 23.6 as well, was found to have TSH elevated at 9.057. He has not had documented fevers, although he is requiring significant ventilatory support. Blood cultures are sterile thus far. He was empirically started on ceftriaxone. As part of the initial evaluation, there was difficulty placing a urinary catheter. This ultimately required an aggressive approach by Urology, felt that there was likely risk for infectious complications. ALLERGIES: LISTED TO PENICILLIN. CURRENT MEDICATIONS: Include atorvastatin, clopidogrel, carvedilol, levothyroxine, aspirin, isosorbide mononitrate, diltiazem, and propofol. PAST MEDICAL HISTORY: As described above, has known atherosclerotic coronary artery disease, previous stenting, aortocoronary bypass grafting. He has got peripheral vascular disease, hypertension, hyperlipidemia, hypothyroidism, history of depression. SOCIAL HISTORY: Smokes 2 packs per day for 30 years. Does utilize marijuana. No ethanol. FAMILY HISTORY: Noncontributory. REVIEW OF SYSTEMS: [place] [address] CONSULTATION Name: CAMILO FARIA Room: [address] IN [facility]#: [id number] Admission: 07/24/19 Attend Phys: Leatha Doty Discharge: Date of : 57 Report #: [id number] PHYSICAL EXAMINATION: GENERAL: He appears chronically ill, undernourished. He is intubated at this point on ventilatory support. He has got a nasogastric tube in place as well as an ET. NECK: Appears to be supple. LUNGS: Scattered coarse breath sounds. HEART: Regular. I do not appreciate a murmur. ABDOMEN: Soft, nontender, nondistended. EXTREMITIES: No cyanosis. GENITOURINARY: Deferred. RECTAL: Deferred. LABORATORY DATA: Renal ultrasound showed echogenic kidneys. Most recent ABG, pH 7.383, pCO2 of 26.7, pO2 of 95.9, FiO2 of 30%. Blood cultures, sterile thus far. Most recent chest x-ray showed development of focal infiltrate versus atelectasis in the right cardiac and left lung base. Electrolytes: Sodium 142, potassium 3.7, chloride 109, bicarbonate is 16, BUN and creatinine 32 and 4.1, that is up from 3.8, anion gap of 14, glucose of 118. LFTs unremarkable. Albumin of 2.5, total protein 6.0. Prealbumin 23.4. CBC: White count of 22.9, H and H 13.0 and 39.2, platelets of 253, monocytosis. Most recent lactic acid of 1.7 from initial 4.9. ASSESSMENT AND PLAN: Suspected aspiration pneumonitis in the setting of seizure, complicated by concern about loss of airway control. At this point, there are efforts to wean. We will continue empiric antimicrobial therapy, ceftriaxone being reasonable. We will add vancomycin to the dosing regimen and see how he does clinically over the course of next 24-48 hours. Monitor expectantly, certainly at risk for additional nosocomial related infectious complications. <ELECTRONICALLY SIGNED> By: Amado Diana MD 07/26/19 0737 [id number] Diana MD /nt
--- NOTE | 2019-07-26 09:20 | NUR ---
JAYCEE NOW TELE STATUS, WEANED DOWN O2 TO ROOM AIR AT THIS TIME. SITTING UP EATING BREAKFAST AT THIS TIME, NO PAIN, NAUSEA OR SHORTNESS OF AIR. BED IN LOWEST POSIITON, CALL LIGHT IN REACH
--- NOTE | 2019-07-26 11:44 | CON ---
[address] [address] CONSULTATION Name: CAMILO FARIA Room: [address] ADM IN M.R.#: [id number] Admission: 07/24/19 Attend Phys: Leatha Doty Discharge: Date of : 57 Report #: [id number] THIS REPORT FOR: //name// CC: Belia Schofield NEPHROLOGY CONSULTATION LOCATION: [facility], ICU bed #3. I am asked to see this 64-year-old gentleman at the request of Dr. Schofield for acute kidney injury. CHIEF COMPLAINT: The patient was admitted on 07/24/2019 with a history of acute mental status changes, hypertensive emergency and seizure. HISTORY OF PRESENT ILLNESS: The patient has known hypertension, hyperlipidemia, and coronary artery disease and had a 3-day history of nausea, dry heaving and pain in the back of his neck where it meets his head. He complained to his that he had "gone blind" the morning of admission. His said that they had run out of medications for about 4 weeks and his blood pressure was over 200 on every occasion. On the afternoon of admission, he became agitated and had a seizure. EMS was called. He was treated with Versed and Narcan and was transported to the ED. Blood pressure was initially 224/149, temperature of 37.1. He was agitated. He required intubation. Initial CT scan of the head was negative. Chest x-ray was negative and labs showed a white count of 23,600, elevated lactate level of 4.9, elevated creatinine of 3.8, and [place] 3365 with troponin of 0.10. His states that he has never had any acute kidney injury issues. She said they did see Dr. Samson in our office in the past year as he was on some medication and they "wanted to be certain that his kidneys were okay." She said they were not given a return appointment. PAST MEDICAL HISTORY: His other past medical history is positive for hyperlipidemia, tobacco abuse. He has had peripheral arterial disease. He had a carotid endarterectomy and a 2-vessel coronary artery bypass surgery. He has also had a percutaneous intervention history with stents placed in his heart. He has had both a right and left carotid endarterectomy. He has had 6 stents placed in his groin, hypothyroidism, and hyperlipidemia. FAMILY HISTORY: Positive for cardiac disease, hypertension and vascular disease. SOCIAL HISTORY: He is . He uses daily marijuana, everyday tobacco user. No alcohol, no other drugs. ALLERGIES: [place] [address] CONSULTATION Name: FARIACAMILO HAMLET Room: [address] IN ..#: [id number] Admission: 07/24/19 Attend Phys: Leatha Doty Discharge: Date of : 57 Report #: [id number] HOME MEDICATIONS: Have been atorvastatin 40 mg every evening, aspirin 81 mg daily, carvedilol 6.25 mg b.i.d., clopidogrel 75 mg daily, isosorbide mononitrate 30 mg daily, levothyroxine 50 mcg daily, lisinopril 20 mg daily, ondansetron 4 mg every 8 hours p.r.n. nausea and vomiting, cholecalciferol 1000 units daily, D3 50,000 units weekly, Symbicort 160/4.5 inhalation b.i.d., albuterol 3 mL inhalation every 4 hours p.r.n., Newberry 5/325 every 6 hours p.r.n., cyanocobalamin 1 tablet daily, ranitidine 150 mg b.i.d., spironolactone and hydrochlorothiazide 25/25 one tablet daily, levothyroxine 1 tablet daily, lisinopril and hydrochlorothiazide 20/25 one daily, amlodipine 2.5 mg daily. REVIEW OF SYSTEMS: CONSTITUTIONAL: Obtained from his . The patient is confused. He opens his eyes. He asked his who she is and why she did this to him. HEENT: He had no recent changes in vision or hearing. CARDIAC: No chest pain. PULMONARY: Not short of air. He was intubated on admission because of his confusion and for protection in light of his seizures. He does have COPD and a long time tobacco use, chronic coughing, chronic inhalers are required. ABDOMEN: He has had recent nausea and vomiting. HEMATOLOGIC AND LYMPHATIC: No cancer history that I am aware of. He has not been anemic. MUSCULOSKELETAL: Weakness. ENDOCRINE: Negative for any diabetes. He is hypothyroid. PSYCHIATRIC: Negative. NEUROLOGIC: He has positive seizures. No TIA, CVA or Parkinson's disease. Other 14-point review of systems as above. PHYSICAL EXAMINATION: GENERAL: He is having an EEG performed. His is at the bedside. VITAL SIGNS: Show a temperature of 35.9, T-max was 37.1 on admission. Heart rate 72, respirations 26, blood pressure is still high, but better and quite variable at 108/67 with a high being 169/97 at 10:30 this morning. HEENT: He is atraumatic. He is extubated, awake, alert, breathing comfortably. Pupils do react to light. NECK: Supple without increased jugular venous pressure. CHEST: Clear. HEART: Regular rhythm. No rubs, no gallops. ABDOMEN: Thin, soft, positive bowel sounds, no masses. EXTREMITIES: No edema, 1-2+ femoral pulses, soft calves. No ulcerations noted on his distal extremities. NEUROLOGIC: He is moving his extremities. Cranial nerves, sensory seemed to be intact. He is moving all 4 extremities. His mental status does seem altered. LABORATORY DATA: Shows a white count of 22,900, hemoglobin 13, hematocrit 39.2, platelets are adequate. Blood gas shows a pH of 7.38, pCO2 of 25.7, [place] [address] CONSULTATION Name: CAMILO FARIA Room: [address] IN [facility].#: [id number] Admission: 07/24/19 Attend Phys: Leatha Doty Discharge: Date of : 57 Report #: [id number] 63.8, this is on 30% FiO2 when he was on the vent earlier today. Coags show a PT of 10.6, INR 1, PTT 27.1. Chemistry shows a sodium of 142, potassium 3.7, chloride 109, CO2 of 16, BUN and creatinine 32 and 4.1, glucose 118, calcium 8.8. Liver function studies are not increased except for an alkaline phosphatase of 140. CK 108, albumin 2.5. His salicylate level was 9.5. Alcohol level less than 10. His urine was red and turbid with 3+ protein, 3+ blood, negative leukocyte esterase, 1-9 bacteria. IMAGING STUDIES: Include a renal ultrasound that was done today and shows echogenic kidneys consistent with medical renal disease and possible minimal left caliectasis. Chest x-ray that was done today shows development of focal atelectasis and infiltrate in the right cardiac and left lung base. Blood cultures have been obtained and today show no growth. IMPRESSION: 1. Acute kidney injury with progressive increase in creatinine daily. It is occurring in the face of a seizure disorder, uncontrolled hypertension, possible extracellular volume depletion and rapid correction of his elevated blood pressure. He does not have obstruction, I do not know if he has been on any recent nephrotoxins. He was on an NEGIN-I either once or twice a day and this has been discontinued. I do not know about nonsteroidal anti-inflammatory drugs. 2. Underlying chronic kidney disease, appears to be stage 3 with a baseline creatinine of about 1.6 and an EGFR of 44 mL per minute back in 03/2018. 3. Metabolic acidosis, occurring in the setting of seizure disorder and hypercarbic respiratory acidosis on admission with a CO2 of 19 on his electrolytes on admission. 4. Peripheral arterial disease with multiple areas of involvement including his coronary arteries, carotid arteries, prior left and right carotid endarterectomies, prior bypass procedure and stenting of his coronary arteries and placement of 6 groin stents in the past as well. 5. Hypertension, uncontrolled. 6. Hyperlipidemia. 7. Hypothyroidism. 8. Seizure disorder, perhaps related to his uncontrolled hypertension. 9. Daily tobacco dependency. 10. Daily marijuana use. 11. Urinary retention, perhaps contributing to his acute kidney injury. The patient had a Mckeon catheter placement that was quite difficult, causing hematuria. 12. Systemic inflammatory response syndrome plus sepsis. 13. Lactic acidosis in the setting of sepsis. PLAN: Thus far, his creatinine is continuing to rise. It has gone from 3.8 to [facility] [address] [place] [address] CONSULTATION Name: CAMILO FARIA Room: M003-P [facility] IN M.R.#: [id number] Admission: 07/24/19 Attend Phys: Leatha Doty Discharge: Date of : 57 Report #: [id number] 3.9 to 4.1. This is in the setting of his recent NEGIN-I use and his above bladder issues. We will check immunological studies, try and achieve adequate renal perfusion without blood pressure too high or too low. Check urine for eosinophils. I have discussed with the patient's the fact that if his creatinine continues to increase, he may require dialysis. We will follow with you. <ELECTRONICALLY SIGNED> By: Ashly Ramos MD 07/26/19 1144 [id number] Ramos MD /nt
--- NOTE | 2019-07-26 13:36 | CON ---
[address] [address] CONSULTATION Name: CAMILO FARIA Room: [address] ADM IN M.R.#: [id number] Admission: 07/24/19 Attend Phys: Leatha Doty Discharge: Date of : 57 Report #: [id number] THIS REPORT FOR: //name// CC: Belia Schofield DATE OF SERVICE: 07/25/2019 HISTORY OF PRESENT ILLNESS: This is a 64-year-old male patient who was seen by me yesterday. The note is being dictated today because of being busy. I talked to the patient's a couple of times yesterday and then I talked to the patient himself when he got extubated and subsequently I talked to the patient's nurse. This patient stopped taking his medications. It is not clear the duration, thinks it is 4-5 days, the patient thinks it is much longer. He had some jerking yesterday and was brought to the hospital. He also had some intermittent nausea, dry heaving. He had some difficulty with vision. His blood pressure has been persistently high. He also had some agitation and when he came to the Emergency Room, his blood pressure was 224/49. REVIEW OF SYSTEMS: Positive for noncompliance. His hypertension is uncontrolled. He has peripheral vascular disease. He had altered mental status. His memory is still poor, but is becoming better. He does have a history of vascular disease in the past. A 14-point review of systems is positive for noncompliance. It is suspected he also has aspiration pneumonitis. PAST MEDICAL HISTORY: Positive for multiple problems, especially uncontrolled hypertension and noncompliance. FAMILY HISTORY: Negative for early age stroke. SOCIAL HISTORY: He smokes. He smokes marijuana also on a regular basis. Apparently, he does not drink any alcohol. PHYSICAL EXAMINATION: When he was seen first time, he was intubated. When I saw him again, he was extubated. He was able to talk. Family thinks his memory was still poor. I cannot tell about his vision. He moved all 4 extremities. There was no meningeal sign. His blood pressure has improved and it is 155/83, pulse is 92, temperature is 98.2. He had an MRI done. MRI did indicate, but looks like PRES syndrome. IMPRESSION: This patient appeared to have posterior reversible encephalopathy syndrome secondary to uncontrolled hypertension. They can sometime cause seizure and the need to be closely monitored. He is a smoker and he needs to stop smoking. He apparently has a history of carotid disease in the past, but I cannot get very good history from him, so I will check an MRA [place] [address] CONSULTATION Name: CAMILO FARIA Room: [address] IN .R.#: [id number] Admission: 07/24/19 Attend Phys: Leatha oDty Discharge: Date of : 57 Report #: [id number] RECOMMENDATIONS: 1. Closely monitor him for any seizure, but until seizures recur, I will be reluctant to put him on a seizure medication, but he needs to be very closely monitored for that. If there is any suspicion, we will put him on anticonvulsant. 2. I will get an MRA of the head and neck done just because of peripheral vascular disease and to make sure there is no other etiology there. I had spent about 50 minutes of total time on this patient and majority of that time was spent counseling and coordinating. Dr. Gomez will follow up this patient with you from today. <ELECTRONICALLY SIGNED> By: Jonas Martin MD 07/26/19 1336 1037 [id number] Martin MD /nt
--- NOTE | 2019-07-26 13:37 | 2DMMODE ---
[place] [address] 2 D/M-MODE ECHOCARDIOGRAM Name: CAMILO FARIA Room: 003-P ADM IN [facility]#: [id number] Admission: 07/24/19 Attend Phys: Warren Schofield Discharge: Date of : 57 Date of Service: 07/26/19 1336 Report #: [id number] THIS REPORT FOR: //name// APPROVED REPORT Study performed: 07/26/2019 09:58:01 EXAM: Comprehensive 2D, Doppler, and color-flow Echocardiogram Patient Location: In-Patient Room #: 003 Status: routine BSA: 1.74 HR: 80 bpm BP: 155/83 mmHg Rhythm: NSR Other Information Study Quality: Good Indications Acute MD 2D Dimensions IVSd: 10.54 (7-11mm) LVOT Diam: 22.18 (18-24mm) LVDd: 51.45 mm PWd: 9.04 (7-11mm) Ascending Ao: 32.09 (22-36mm) LVDs: 35.25 (25-40mm) Aortic Root: 35.57 mm Volumes Left Atrial Volume (Systole) LA ESV Index: 22.00 mL/m2 Aortic Valve AoV Peak Sukhdeep.: 1.03 m/s AO Peak Gr.: 4.28 mmHg LVOT Max P.71 mmHg AO Mean Gr.: 2.44 mmHg LVOT Mean P.52 mmHg LVOT Max V: 0.96 m/s AO V2 VTI: 20.10 cm LVOT Mean V: 0.55 m/s RAHEL (VTI): 3.74 cm2 LVOT V1 VTI: 19.42 cm Mitral Valve E/A Ratio: 0.60 MV Decel. Time: 92.35 ms MV E Max Sukhdeep.: 0.45 m/[place] [address] 2 D/M-MODE ECHOCARDIOGRAM Name: CAMILO FARIA Room: [address] IN .R.#: [id number] Admission: 07/24/19 Attend Phys: Warren Schofield Discharge: Date of : 57 Date of Service: 07/26/19 1336 Report #: [id number] MV PHT: 26.78 ms MVA (PHT): 8.21 cm2 TDI E/Lateral E': 5.00 E/Medial E': 6.43 Medial E' Sukhdeep.: 0.07 m/s Lateral E' Sukhdeep.: 0.09 m/s Pulmonary Valve PV Peak Sukhdeep.: 0.95 m/s PV Peak Gr.: 3.61 mmHg Tricuspid Valve RAP Estimate: 5.00 mmHg TR Peak Gr.: 20.10 mmHg RVSP: 25.00 mmHg PA Pressure: 25.00 mmHg Left Ventricle The left ventricle is normal size. There is normal LV segmental wall motion. There is normal left ventricular wall thickness. Left ventricular systolic function is normal. The left ventricular ejection fraction is within the normal range. LVEF is 55-60%. Grade I - abnormal relaxation pattern. Right Ventricle The right ventricle is normal size. The right ventricular systolic function is normal. Atria The left atrium size is normal. The right atrium size is normal. Aortic Valve Mild aortic valve sclerosis. No aortic regurgitation is present. There is no aortic valvular stenosis. Mitral Valve The mitral valve is normal in structure. Trace mitral regurgitation. No evidence of mitral valve stenosis. Tricuspid Valve The tricuspid valve is normal in structure. Trace tricuspid regurgitation. No pulmonary hypertension. Pulmonic Valve The pulmonary valve is normal in structure. There is no pulmonic [place] [address] 2 D/M-MODE ECHOCARDIOGRAM Name: CAMILO FARIA Room: [address] IN [facility]#: [id number] Admission: 07/24/19 Attend Phys: Warren Schofield Discharge: Date of : 57 Date of Service: 07/26/19 1336 Report #: [id number] Great Vessels The aortic root is normal in size. IVC is normal in size and collapses >50% with inspiration. Pericardium There is no pericardial effusion. <Conclusion> The left ventricle is normal size. There is normal left ventricular wall thickness. Left ventricular systolic function is normal. The left ventricular ejection fraction is within the normal range. LVEF is 55-60%. Grade I - abnormal relaxation pattern. The right ventricle is normal size. The left atrium size is normal. Mild aortic valve sclerosis. No aortic regurgitation is present. There is no aortic valvular stenosis. The mitral valve is normal in structure. Trace mitral regurgitation. The tricuspid valve is normal in structure. IVC is normal in size and collapses >50% with inspiration. There is no pericardial effusion. There is normal LV segmental wall motion. <ELECTRONICALLY SIGNED> By: Dontae Weeks MD, FACC 07/26/19 1336 133 133 Dontae Weeks MD, FACC /INF
--- NOTE | 2019-07-26 14:20 | NUR ---
ICU rounds: nurse reported pt tele status now. Possible rx assistance to be provided if needed. SW/CM to remain available to assist with safe dc planning.
--- NOTE | 2019-07-26 17:28 | NUR ---
PATIENT PROGRESSED WELL TOWARDS GOALS THIS SHIFT. TELE STATUS, ABLE TO SIT UP IN A CHAIR FOR 15 MINS. GAVE SELF A BATH TODAY, ON ROOM AIR. VITALS REMAIN WITHIN NORMAL LIMITS. AT BEDSIDE MOST OF THE DAY AND PATIENT GETTING ALONG WITH HER AT THIS TIME. CARIDAC MONITOR IN PLACE, CALL LIGHT IN REACH.
[2019-07-26 17:48] LABS: SMEAR FOR EOSINOPHILS No Eosinophils Seen
[2019-07-26 18:09] LABS: COMPLEMENT-C4 27 mg/dL (14-44); IgA 232 mg/dL (61-437); IgG 442 mg/dL (700-1600); IgM 47 mg/dL (20-172)
[2019-07-27 01:04] VITALS: BP 166/76
[2019-07-27 02:36] LABS: CREATININE 4.4 mg/dL (0.6-1.3); POTASSIUM 3.1 mmol/L (3.5-5.1)
[2019-07-27 03:17] VITALS: BP 170/78
--- NOTE | 2019-07-27 07:00 | NUR ---
PROGRESSING TOWARDS GOALS, AWAKE MOST OF NOC WATCHING TV AND CONVERSATING, REQUESTING AND RECEIVED HYDROCODONE 5/325MG PO X2 FOR C/O BACK PAIN, PT VEBALIZIED HYDROCODONE EFFECTIVE FOR PAIN MANAGEMENT, VERBAL EDUCATION PROVIDED IMPORTANCE MEDICATION COMPLIANCE, PT VERBALIZED UNDERSTANDING, NSR TRACING CARDIAC MONTITOR, HYDRALAZINE 10MG IVP GIVEN X1 FOR SBP>170 WITH MINIMAL RESULTS SBP DECREASED 169, NSR TRACING METER/RELAY CRAFTSMAN, DENIES SOA, REMAINS ON OXYGEN 2L PER NC, LYMAN PATENT TO DD BLOOD TINGED URINE, TOLERATING DIET, SAFETY MAINTAINED.
[2019-07-27 08:00] VITALS: BP 169/70
--- NOTE | 2019-07-27 11:54 | NUR ---
PATIENT ARRIVED THIS AM AT ABOUT 0930. PATIENT IS ALERT AND ORIENTED X 4. HE DENIES PAIN ON ARRIVAL. PATIENT PLACED ON TELE MONITOR. ORIENTED TO ROOM AND PROCEDURES. PATIENT IS RESTING AT THIS TIME AND CALL LIGHT IS IN PLACE.
[2019-07-27 12:06] VITALS: BP 151/70
[2019-07-27 16:53] VITALS: BP 150/76
[2019-07-28] VITALS (7 sets, daily range): BP systolic 142–171; BP diastolic 67–88
--- NOTE | 2019-07-28 01:50 | NUR ---
PT A+O X4. DOES SEEM A LITTLE FORGETFUL ABOUT THE PAST FEW DAYS IN HOSPITAL WHILE IN THE ICU. REPORTED BACK PAIN FROM "BEING IN THE BED SO MUCH." PT REPORTED HE "WANTS TO GET UP AND WALK TOMORROW." PT ALSO C/O NAUSEA BUT FELL ASLEEP BEFORE ABLE TO CALL DR FOR MEDICATION. CALL LIGHT IN REACH. HOURLY ROUNDING FOR SAFETY.
[2019-07-28 04:56] LABS: CALCIUM 8.4 mg/dL (8.5-10.1); CREATININE 3.9 mg/dL (0.6-1.3); MAGNESIUM 2.3 mg/dL (1.8-2.4); PHOSPHORUS* 5.6 mg/dL (2.5-4.9)
[2019-07-28 05:29] LABS: POTASSIUM 2.8 mmol/L (3.5-5.1)
--- NOTE | 2019-07-28 11:56 | NUR ---
ASSUMED CARE OF PATIENT THIS AM AT 0730. PATIENT IS ALERT AND ORIENTED X 4. HE DENIES PAIN THIS AM. PATIENT'S APPETITE IS POOR THIS AM, AND HE C/O MILD NAUSEA. TELE SHOWS NSR. PATIENT'S BP WAS ELEVATED. AM MEDICATIONS GIVEN. WILL CONTINUE TO MONITOR PATIENT'S COMFORT AND ENCOURAGE ACTIVITY.
[2019-07-29 03:45] VITALS: BP 148/89
[2019-07-29 04:57] LABS: ABSOLUTE BASOPHILS 0.1 thou/uL (0.0-0.2); ABSOLUTE EOSINOPHILS 0.1 thou/uL (0.0-0.7); ABSOLUTE LYMPHOCYTES 1.8 thou/uL (0.8-5.3); ABSOLUTE MONOCYTES 1.4 thou/uL (0.0-1.2); ABSOLUTE NEUTROPHILS 8.3 thou/uL (1.6-8.1); BASOPHILS 0.8 %; EOSINOPHILS 0.6 %; HEMATOCRIT 30.7 % (42.0-52.0); HEMOGLOBIN 10.6 gm/dL (14.0-18.0); LYMPHOCYTES 15.4 %; MCH 33.1 pg (26.0-34.0); MCHC 34.5 g/dL (28.0-37.0); MCV 96.1 fL (80.0-100.0); MONOCYTES 12.2 %; MPV 8.2 fl. (7.2-11.1); NUCLEATED RBCS 0 /100WBC; RDW-CV 13.6 % (10.5-14.5); WBC 11.8 thou/uL (4.0-11.0)
[2019-07-29 05:06] LABS: PLATELET COUNT* 340 thou/uL (150-400)
[2019-07-29 05:15] LABS: PREALBUMIN 14.9 mg/dL (18.0-35.7)
[2019-07-29 05:20] LABS: ALBUMIN 2.1 g/dL (3.4-5.0); CALCIUM 8.9 mg/dL (8.5-10.1); CREATININE 3.6 mg/dL (0.6-1.3); POTASSIUM 3.5 mmol/L (3.5-5.1); TOTAL BILIRUBIN 0.5 mg/dL (<0.1-1.0); TOTAL PROTEIN 6.2 g/dL (6.4-8.2)
[2019-07-29 05:37] LABS: ALBUMIN 2.1 g/dL (3.4-5.0); CALCIUM 9.1 mg/dL (8.5-10.1); CREATININE 3.7 mg/dL (0.6-1.3); MAGNESIUM 2.2 mg/dL (1.8-2.4); PHOSPHORUS* 4.6 mg/dL (2.5-4.9); POTASSIUM 3.7 mmol/L (3.5-5.1)
[2019-07-29 08:11] VITALS: BP 158/81
--- NOTE | 2019-07-29 09:22 | CON ---
[address] [address] CONSULTATION Name: CAMILO FARIA Room: [address] IN M.R.#: [id number] Admission: 07/24/19 Attend Phys: Leatha Doty Discharge: Date of : 57 Report #: [id number] THIS REPORT FOR: //name// CC: Belia Tucker DO Warren Schofield DATE OF SERVICE: 07/25/2019 INDICATION: Elevated troponin in the setting of sepsis and acute renal failure. HISTORY OF PRESENT ILLNESS: The patient is a 64-year-old gentleman with a history of ischemic cardiomyopathy. He had coronary artery bypass grafting in 2017. Most recent noninvasive studies have shown normalization of his left ventricular systolic function. The patient has diffuse peripheral vascular disease with previous bilateral carotid stenoses and stenting of his lower extremities. Cardiac risk factors include tobacco use, family history of coronary artery disease, dyslipidemia and hypertension. The patient apparently had run out of medications recently at home. He has been having some mental status changes in the last couple of days to the point of becoming unresponsive. His systolic blood pressures apparently were above 200. He was able to resume medications just yesterday, but had no significant improvement in his mental status and was admitted to the hospital basically unconscious. He was intubated to protect airway. No history suggests any recent chest pain or cardiac complaint. In this setting, his troponins are mildly elevated at 0.4. PAST MEDICAL HISTORY: 1. Coronary artery disease with previous coronary artery bypass grafting. 2. History of ischemic cardiomyopathy with normalization of EF on most recent studies. 3. Hypertension. 4. Mixed hyperlipidemia. 5. Peripheral arterial disease. 6. Previous carotid endarterectomy. FAMILY HISTORY: Positive for heart disease in the patient's father. SOCIAL HISTORY: The patient smokes cigarettes daily. He denies use of alcohol. He is and lives with . REVIEW OF SYSTEMS: Not obtainable. PHYSICAL EXAMINATION: VITAL SIGNS: Blood pressure 123/79, [place] 82. [place] [address] CONSULTATION Name: CAMILO FARIA Room: [address] IN [facility]#: [id number] Admission: 07/24/19 Attend Phys: Leatha Doty Discharge: Date of : 57 Report #: [id number] GENERAL: This is a gentleman, who appears older than stated age. He was intubated and unresponsive. HEENT: Head is normocephalic, atraumatic. NECK: Shows no evidence of jugular venous distention. CHEST: Clear anteriorly. CARDIAC: Reveals regular rhythm without gallop or murmur. ABDOMEN: Shows scaphoid abdomen, soft. EXTREMITIES: Shows no edema. SKIN: Dry. Chest x-ray shows some atelectasis without acute heart failure. LABORATORY DATA: Reviewed. Sodium 142, potassium 3.7, chloride 109, bicarb 16, BUN 32, creatinine 4.1, serum glucose 118, magnesium 2.7, alkaline phosphatase 140. ALT 28. Total protein 6.0, albumin 2.5. EGFR 15. Troponin on arrival 0.10, subsequently, 0.21 and now 0.41. NT-proBNP 3365. White blood cell count 22.9, hemoglobin 13.0, platelet count 253,000. IMPRESSION AND RECOMMENDATIONS: 1. Elevated troponin, likely due to type 2 myocardial infarction in the setting of sepsis and acute renal failure. Doubt this represents acute coronary syndrome. We will obtain echocardiogram to evaluate left ventricular systolic function. Resume home medications as tolerated. 2. Hypertension. Blood pressure elevated on arrival. Hopefully, this will improve with the resumption of his home regimen. 3. Acute renal failure, Nephrology following. 4. Chronic tobacco use, cessation will be advised. 5. Dyslipidemia. Resume atorvastatin when taking oral medications. 6. Peripheral vascular disease. The patient has been stable on a combination of aspirin and Plavix. I would resume this when taking oral medications. <ELECTRONICALLY SIGNED> By: Baltazar Urrutia MD, FACC 07/29/19 0922 1721 [id number] Urrutia MD, FACC /nt
--- NOTE | 2019-07-29 09:27 | NUR ---
ASSUMED CARE OF PT THIS AM AROUND 0715- CELL POURER IN PLACE ORDERED, TRACING SR- UPON ASSESSMENT PT NOTED TO BE RESTING IN BED BED, WATCHING TV- PT A&O X4- CONTINENT OF BOWEL, LYMAN IN PLACE D/D CLEAR YELLOW URINE- UP AD-EDIL IN ROOM, STEADY GAIT NOTED- LCTA, RESP EVEN AND UN-LABORED- REPORTED NON-PRODUCTIVE COUGH- VSS, O2 SAT 95% ON RA- ABD SOFT/ROUND/NON-TENDER, BS X4 QUADS- LAST BM REPORTED 07/28/19- IV NOTED TO LEFT FA INTACT AND SL- GOOD PO INTAKE NOTED THIS AM WITH BREAKFAST- PT EXPRESSES WISHES TO GO HOME THIS SHIFT- DENIES ANY C/O PAIN/DISCOMFORT AT THIS TIME- CALL LIGHT AND PERSONAL BELONGINGS WITH IN REACH- PT MAKES NEEDS KNOWN- ALL NEEDS MET AT THIS TIME-WCGINO
[2019-07-29 11:23] VITALS: BP 158/81
[2019-07-29 12:10] LABS: ANA INTERPRETATION Negative (Negative)
[2019-07-29 12:59] VITALS: BP 172/88
[2019-07-29 16:00] VITALS: BP 129/84
[2019-07-29 19:07] LABS: GLOBULIN TOTAL 2.3 g/dL (2.2-3.9); M-SPIKE Not Observed g/dL (Not Observed)
[2019-07-29 19:50] VITALS: BP 191/92
[2019-07-30 04:48] LABS: ABSOLUTE BASOPHILS 0.1 thou/uL (0.0-0.2); ABSOLUTE EOSINOPHILS 0.1 thou/uL (0.0-0.7); ABSOLUTE LYMPHOCYTES 1.3 thou/uL (0.8-5.3); ABSOLUTE NEUTROPHILS 6.6 thou/uL (1.6-8.1); BASOPHILS 0.8 %; EOSINOPHILS 1.6 %; HEMATOCRIT 28.1 % (42.0-52.0); HEMOGLOBIN 10.2 gm/dL (14.0-18.0); LYMPHOCYTES 14.4 %; MCH 34.6 pg (26.0-34.0); MCHC 36.3 g/dL (28.0-37.0); MCV 95.5 fL (80.0-100.0); MONOCYTES 11.3 %; MPV 7.8 fl. (7.2-11.1); NUCLEATED RBCS 0 /100WBC; PLATELET COUNT* 341 thou/uL (150-400); POLYS 71.9 %; RBC 2.95 mil/uL (4.50-6.00); RDW-CV 13.7 % (10.5-14.5); WBC 9.1 thou/uL (4.0-11.0)
[2019-07-30 04:54] LABS: CALCIUM 8.9 mg/dL (8.5-10.1); CREATININE 3.6 mg/dL (0.6-1.3); POTASSIUM 3.1 mmol/L (3.5-5.1)
--- NOTE | 2019-07-30 06:57 | NUR ---
INC HALLUCINATIONS THROUGH THE NIGHT, PT REFUSED TO TAKE ANY MEDICATION FOR HALLUCINATIONS, APPROX 0500 PT WOKE UP AND STATED THAT HE KNEW HE WAS HALLUCINATING LAST NIGHT AND IS NO LONGER HALLUCINATING. PT STATES HE IS FEELING BETTER AND READY TO GO HOME. VSS. SEE MAR. SEE CHARTING. PROGRESSING TOWARDS GOALS. HOULRY ROUNDING FOR SAFETY.
[2019-07-30 08:00] VITALS: BP 170/94
--- NOTE | 2019-07-30 11:13 | NUR ---
ASSUMED PT CARE AT 0800, AOX4, UP AD EDIL, O2 SAT 90'S RA. PT TRACING SINUS RHYTHM ON TELE. PT DENIES PAIN, WANTS TO GO HOME. PT FOR DISCHARGE. PER NEUROLOGY OK TO D/C. LYMAN CATH INTACT, WILL LEAVE LYMAN CATH PER NEPHROLOGY TO FOLLOW UP OUTPATIENT. VSS, AM ASSESSMENT CHARTED, MEDS GIVEN PER MAR, CALL LIGHT WITHIN REACH. WILL CONTINUE TO MONITOR
[2019-07-30] MEDS ORDERED: IMDUR 30 MG TAB30 M1 PO (11:25)
[2019-07-30] MEDS ORDERED: PROTONIX40 M2 PO (11:27)
--- NOTE | 2019-07-30 11:30 | NUR ---
ORDERS NOTED FOR DC WITH HH. PT TO GO HOME WITH NURA. MET WITH PT AND , DISCUSSED HH AND OPTIONS. PT STATES HE HAD HH 10YRS AGO AND WAS OPEN TO ANY THAT WOULD TAKE HIS INSURANCE. DISCUSSED FURTHER OPTIONS AND CHOSE [facility]. CALLED AND GAVE REFERRAL TO [facility] WHO CAME TO VISIT PT PRIOR TO DC. NO OTHER NEEDS ID'D
[2019-07-30 12:16] VITALS: BP 160/90
--- NOTE | 2019-07-30 12:48 | NUR ---
DISCHARGED PLAN DISCUSSED WITH THE PT AND . MEDICATION SCRIPT/PACKET GIVEN. IV, TELE REMOVED. REMINDED TO FOLLOW UP PCP, NEUROLOGY,CARDIOLOGY. REMINDED TO FOLLOW UP WITH NEPHROLOGY. ALL BELONGINGS PACKED AND CHECKED. WILL CONTINUE TO MONITOR.
== END 2019-07-30 12:42 | disposition home health service (06) | DRG 871 ==
LOC: M.ERS 15:27 → M.TBA-ER 18:23 → M.2W 18:23 → M.ICU 18:23 → M.2W 07-27 09:32
PROVIDERS: Emergency Medicine Emergency Medical Services; Internal Medicine; Internal Medicine Nephrology; ADMIT Internal Medicine
PROC: 5A1935Z Respiratory Ventilation, Less than 24 Consecutive Hours (ICD-10-PCS; principal; 2019-07-24)
PROC: 0BH17EZ Insertion of Endotracheal Airway into Trachea, Via Natural or Artificial Opening (ICD-10-PCS; principal; 2019-07-24)
PROC: 0TJB8ZZ Inspection of Bladder, Via Natural or Artificial Opening Endoscopic (ICD-10-PCS; 2019-07-25)
DX: A41.9 Sepsis, unspecified organism (principal); G93.41 Metabolic encephalopathy; J18.9 Pneumonia, unspecified organism; T83.83XA Hemorrhage due to genitourinary prosthetic devices, implants and grafts, initial encounter; I16.1 Hypertensive emergency; N17.9 Acute kidney failure, unspecified; I10 Essential (primary) hypertension; E03.9 Hypothyroidism, unspecified; I25.10 Atherosclerotic heart disease of native coronary artery without angina pectoris; F12.90 Cannabis use, unspecified, uncomplicated; F17.210 Nicotine dependence, cigarettes, uncomplicated; I73.9 Peripheral vascular disease, unspecified; E78.2 Mixed hyperlipidemia; G40.909 Epilepsy, unspecified, not intractable, without status epilepticus; R33.9 Retention of urine, unspecified; R31.0 Gross hematuria; D64.9 Anemia, unspecified; Z28.21 Immunization not carried out because of patient refusal; Z95.820 Peripheral vascular angioplasty status with implants and grafts; Z95.5 Presence of coronary angioplasty implant and graft; Z88.0 Allergy status to penicillin; Z82.49 Family history of ischemic heart disease and other diseases of the circulatory system; Z95.1 Presence of aortocoronary bypass graft; Z71.6 Tobacco abuse counseling; Y84.6 Urinary catheterization as the cause of abnormal reaction of the patient, or of later complication, without mention of misadventure at the time of the procedure; Y92.230 Patient room in hospital as the place of occurrence of the external cause

== ENCOUNTER → 2019-08-23 | Outpatient (CLI) | payer OTHER, MEDICAID ==
[~2019-08-23] MED LIST changes: +LEVO-T50 MCG PO; +LISINOPRIL-HCT1 EAC2 PO; +NORVASC 2.5 MG2.5 M1 PO; +PROTONIX40 M2 PO; +SPIRONOLACT/HCT1 TA1 PO; +VITAMIN B-121000 MC2 SUBLING; +ZANTAC 150MG T150 M1 PO
== END ==
LOC: M.ULTRA 09:15
DX: N17.9 Acute kidney failure, unspecified (principal)

== ENCOUNTER 2020-11-04 08:51 | Observation (INO) | payer MEDICAID ==
[~2020-11-04] VITALS: Ht 180.3 cm; Wt 56.0 kg
[2020-11-04] VITALS (22 sets, daily range): BP systolic 128–198; BP diastolic 63–108
--- NOTE | ~2020-11-04 | H ---
[address] [address] HISTORY AND PHYSICAL Name: CAMILO FARIA Room: [address] [place] Galvan#: [id number] Admission: 11/04/20 Attend Phys: Redd Bledsoe MD, F Discharge: 11/05/20 Date of : 57 Report #: [id number] THIS REPORT FOR: cc: Belia Tucker Ahmad W. DO ~ [facility],Medical Records Staff Please refer to the History and Physical performed in the physician's office. By: [id number] Records Staff [facility] /[place]
--- NOTE | ~2020-11-04 | D ---
[address] [address] DISCHARGE SUMMARY Name: CAMILO FARIA Room: [address] [place] Galvan#: [id number] Admission: 11/04/20 Attend Phys: Redd Bledsoe MD, F Discharge: Date of : 57 Report #: [id number] THIS REPORT FOR: cc: Belia Tucker Ahmad W. DO ~ Blick, David R. MD [facility] DISCHARGE DIAGNOSES: 1. Crescendo angina. 2. Coronary artery disease. 3. Chronic obstructive pulmonary disease. 4. Hypertension. 5. Peripheral arterial disease. 6. Cerebrovascular disease. 7. Tobacco abuse. 8. Chronic kidney disease. CONSULTANTS: None. PROCEDURES: 1. Left heart catheterization with placement of 2 drug-eluting stents in the saphenous vein graft to the circumflex artery via the femoral approach. HISTORY OF PRESENT ILLNESS: The patient is a 65-year-old white male who was brought to the outpatient department to undergo repeat cardiac catheterization. The patient had previous coronary artery bypass surgery at [facility] years ago. He apparently had a coronary stent placed at [facility] in the past. Recently, he has had frequent episodes of chest discomfort that goes into his arm. It is related to exertion. He has had no bleeding. He does get short of breath when he exerts himself. Unfortunately, he continues to smoke. He does have a chronic cough. Denied any palpitations, syncope, bleeding. When I saw him in the office last week, I recommended repeat cardiac catheterization for possible stenting. PAST MEDICAL HISTORY: Otherwise significant for previous carotid endarterectomy. He has had previous lower extremity stenting. CURRENT MEDICATIONS: Include amlodipine, inhaler, aspirin 81 mg a day, Lipitor 80 mg a day, Symbicort inhaler, carvedilol 6.25 mg twice a day, Plavix 75 mg a day, Imdur 30 mg a day, Synthroid, Prinivil 20 mg a day, Protonix, Flomax. ALLERGIES: HE HAS A PREVIOUS INTOLERANCE TO PENICILLIN. PHYSICAL EXAMINATION: VITAL SIGNS: On admission showed a blood pressure of 140/70, pulse is 60. HEENT: Mucous membranes are moist. CHEST: Revealed distant [place] [address] DISCHARGE SUMMARY Name: CAMILO FARIA Room: [address] M[place]#: [id number] Admission: 11/04/20 Attend Phys: Redd Bledsoe MD, F Discharge: Date of : 57 Report #: [id number] CARDIOVASCULAR: Regular rate and rhythm. ABDOMEN: Soft. EXTREMITIES: Had no pitting edema. RADIOLOGICAL STUDIES: ECG: Sinus bradycardia, nonspecific ST-segment changes. The patient had an echocardiogram in 07/2019 that showed an ejection fraction of 60% with no significant valvular abnormalities. His last chest x-ray was in 07/2019 that showed hyperinflated lung gee. Previous MRI of the head showed no previous stroke. LABORATORY DATA: His lab work on admission, sodium 143, potassium 4.8, BUN 30, creatinine 3.1, glucose 94. SGOT and SGPT were normal. Cholesterol 123, triglyceride 81, HDL 32, LDL 75. His white blood cell count 7.9, hemoglobin 11.4. HOSPITAL COURSE: The patient was brought to the outpatient department. I performed left heart catheterization from the right femoral artery. There was difficulty advancing guidewire through the iliac artery because of previous stent. Results of cardiac catheterization showed chronic occlusion of the LAD, circumflex. The right coronary artery had only 80% narrowing in the distal right coronary artery prior to its bifurcation. I was unable to cannulate the HUITRON graft because of previous subclavian stent, but flush injection showed patent HUITRON graft to the LAD. There was one saphenous vein graft identified that went to the first marginal branch. This vein graft appeared to have an ostial 80% stenosis as well as a distal 80% stenosis in the vein graft. He was then given heparin and I placed drug-eluting stents in the ostium of the vein graft as well as distal portion. He tolerated the procedure well. He was given heparin during the procedure. At the end of the procedure, the sheath was sutured in place. After his ACT normalized, the sheath was removed and hemostasis was achieved with prolonged pressure. The valve was crossed and he had an LVEDP of 14 mmHg with no gradient across the valve. The sheath was removed later that day. He was transferred to a monitored bed. Fortunately, he had no further chest pain, shortness of breath, arrhythmias. The following day, he had a blood pressure of 150/70, pulse is 60. He is afebrile. There were no ECG changes noted. Followup lab work revealed his creatinine was down to 2.8. His hemoglobin was 10.3. Prior to discharge, he is ambulating, had no further complaints. He was discharged on his home medications included an inhaler for his COPD, amlodipine 5 mg a day for hypertension, aspirin 81 mg a day, Lipitor 80 mg a day. If his LDL remains greater than 70, I would consider switching him to Crestor. He was continued on carvedilol 6.25 mg twice a day, Plavix 75 mg a day. Following placement of the stents, I did suggest he discontinue the Imdur. He was to continue Synthroid, lisinopril 20 mg a day. He has nitroglycerin to take as needed for chest pain, Protonix 20 mg a day, Flomax 0.4 mg a day. He was discharged to return to the care of Dr. Tucker for routine medical care. I did suggest that he return to the Nephrology Clinic for chronic [place] [address] DISCHARGE SUMMARY Name: CAMILO FARIA Room: [address] [place] Galvan#: [id number] Admission: 11/04/20 Attend Phys: Redd Bledsoe MD, F Discharge: Date of : 57 Report #: [id number] He was referred to Dr. Dontae Woody for his peripheral arterial disease including stents in his iliac arteries, left subclavian artery and previous carotid endarterectomy. I plan on seeing him in Cardiology Clinic in 1 month for followup. He was to contact my office if he had recurrent chest pain, bleeding or shortness of breath. I strongly recommended he attempt to stop smoking. He was to maintain low fat diet as well as a low sodium. He was to contact my office if he had swelling of the right groin following manual pressure. I strongly recommend he attempt to stop smoking and perhaps use a nicotine patch. The patient was noted to be anemic, but I would hold off endoscopy unless urgent for at least 6 months following placement of the stent. I would not stop Plavix for at least 6 months following stenting. His prognosis is guarded due to his multiple medical problems. I did recommend he start an exercise program. By: 0934 [id number] Bledsoe MD, FACC /nt
[~2020-11-04 08:51] MED LIST changes: +FLOMAX0.4 MG PO; +LIPITOR80 MG PO; +NITROGLYCERIN0.4 MG SUBLING; +NORVASC5 M1 PO; +PROAIR HFA8.5 GM INH; +PROTONIX 20 MG20 MG PO; +SYNTHROID25 MC1 PO; +VITAMIN C500 M2 PO; +VITAMIN D3 PO
[2020-11-04 09:41] LABS: HEMATOCRIT 34.1 % (42.0-52.0); HEMOGLOBIN 11.4 gm/dL (14.0-18.0); MCH 33.7 pg (26.0-34.0); MCHC 33.5 g/dL (28.0-37.0); MCV 100.5 fL (80.0-100.0); MPV 9.2 fl. (7.2-11.1); RBC 3.4 mil/uL (4.50-6.00); RDW-CV 13.8 % (10.5-14.5); WBC 7.7 thou/uL (4.0-11.0)
[2020-11-04 09:52] LABS: ANION GAP 13 mmol/L (7-16); BUN 30 mg/dL (7-18); CALCIUM 8.5 mg/dL (8.5-10.1); CHLORIDE 109 mmol/L (98-107); CO2 20 mmol/L (21-32); CREATININE 3.1 mg/dL (0.6-1.3); GLUCOSE 98 mg/dL (70-99); POTASSIUM 4.3 mmol/L (3.5-5.1); SODIUM 142 mmol/L (136-145)
[2020-11-04 09:54] LABS: PROTIME 10.9 Seconds (9.20-11.50)
[2020-11-04 09:56] LABS: ALKALINE PHOSPHATASE 145 U/L (46-116); CHOLESTEROL 123 mg/dL (<200); HDL CHOLESTEROL 32 mg/dL (>40); LDL CHOLESTEROL 75 mg/dL (<100); SGOT 8 U/L (15-37); SGPT 16 U/L (30-65); TC:HDL 3.8 Ratio (Not establshd); TOTAL BILIRUBIN 0.6 mg/dL (<0.1-1.0); TOTAL PROTEIN 6.5 g/dL (6.4-8.2); TRIGLYCERIDE 81 mg/dL (<150); VLDL 16 mg/dL (<40)
[2020-11-04 10:12] LABS: SERUM ASSESSMENT Clear
--- NOTE | 2020-11-04 11:11 | EKG ---
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: : 1955 Requested By: Redd Bledsoe Order Number: [id number] Reading MD: Redd Bledsoe Measurements Intervals [place] Rate: 45 P: -38 MD: 134 QRS: -55 QRSD: 102 T: 43 QT: 485 QTc: 420 Interpretive Statements Sinus bradycardia Left anterior fascicular block Minimal ST depression, anterolateral leads Compared to ECG 07/24/2019 15:42:38 ST (T wave) deviation now present Sinus tachycardia no longer present Electronically Signed On 11-04-2020 11:11:42 CDT by Redd Bledsoe [email or web address] <ELECTRONICALLY SIGNED> By: Redd Bledsoe MD, [facility] 11/04/20 1111 0948 0948 Redd Bledsoe MD, [facility] /EPI
--- NOTE | 2020-11-04 13:42 | CARD ---
[address] [address] CARDIAC CATH REPORT Name: CAMILO FARIA Room: [facility] GILDARDO Lopez.#: [id number] Admission: 11/04/20 Attend Phys: Redd Bledsoe MD, F Discharge: Date of : 57 Report #: [id number] THIS REPORT FOR: cc: Belia Tucker Ahmad W. DO ~ Redd Bledsoe MD [facility] APPROVED REPORT Study performed: 11/04/2020 10:49:39 Patient Details Patient Status: Out-Patient Room #: The patient is a 65 year-old male Event Personnel Redd Bledsoe Solution Spec, Nancy Haley RN RN, Freddy Canas Scrub, Erika Baires RTR Monitor Procedures Performed Art Access - R femoral artery, LHC w/wo coronaries and Bypass Grafts, DAVID Revasc Graft Single OM, Hemostasis w/ manual pressure Indication Unstable angina , Chest pain Risk Factors Cerebrovascular DiseasePeripheral Vascular Disease, Hypercholesterolemia, Coronary Artery DiseaseRenal Failure, Tobacco History () Previous Procedures/Diagnoses Previous CABGPrevious PCI, Previous Vascular Surgery Admission/Lab Medications/Medications given during procedure Heparin Unfract., Midazolam (Versed) IV 2 mg, Lidocaine Subcut 14 ml, Oxygen Nasal cannula 2 l per min, 0.9% Sodium Chloride IV 75 ml per hr, Fentanyl IV 25 mcg, Midazolam (Versed) IV 1 mg, 0.9% Sodium Chloride IV 125 ml per hr, Heparin IV 6000 units, Heparin IV 2000 units, Plavix PO 75 mg Procedure Narrative The patient was brought electively to the Cardiac Catheterization Laboratory and was prepped and draped in a [place] [address] CARDIAC CATH REPORT Name: CAMILO FARIA Room: [facility]#: [id number] Admission: 11/04/20 Attend Phys: Redd Bledsoe MD, F Discharge: Date of : 57 Report #: [id number] femoral was infiltrated with 2% Lidocaine subcutaneous anesthesia. IV conscious sedation was used throughout procedure with appropriate monitoring and was performed in the presence of a registered nurse who was an independent trained observer other than the physician performing the procedure. A [place] 6 FR sheath was inserted into the right femoral artery. Coronary angiography was performed using coronary diagnostic catheters. The right coronary system was accessed and visualized with a Diagnostic 6 Fr JR 4 catheter. The left coronary system was accessed and visualized with a Diagnostic 6 Fr JL 4 catheter. Left ventricular/Aortic Valve gradient assessed via catheter pullback. Hemostasis was obtained with manual pressure following sheath removal without any complications. The patient tolerated the procedure well and there were no complications associated with the procedure. There was no hematoma. The SVG graft to the OM was accessed and visualized with a Diagnostic 6 Fr JR 4. The HUITRON graft was accessed and visualized using a Diagnostic 6 Fr JR 4. Unable to cannulate HUITRON ostium, therefore the HUITRON graft was visualized with a flush injection in the left subclavian artery. Intraoperative Conscious Sedation Sedation start time: 11:17 Case end Time: 12:18 Fentanyl 25 mcg Versed 3 mg Fluoro Time: 11.2 minutes Dose: DAP 75014 cGycm2 798 mGy Contrast Type and Amount: Visipaque 190 ml Coronary Angiography The patient's coronary anatomy is co- dominant. [place] Artery Percent Stenosis Grafts (Complete if Previous CABG=Yes: Percent Stenosis) Flush injection in the left subclavian artery revealed the HUITRON graft was patent to the LAD. SVG to the first marginal artery appeared to have an ostial eccentric 80% stenosis. There was an 80% stenosis noted in the distal portion of the SVG. Diagnostic Cath Left Main 90% ostial stenosis LAD chronically occluded Circumflex chronically occluded. A 90% stenosis was noted in the mid circumflex artery. Right Coronary 50% proximal stenosis, and an 80% [place] [address] CARDIAC CATH REPORT Name: CAMILO FARIA [id number] Admission: 11/04/20 Attend Phys: Redd Bledsoe MD, F Discharge: Date of : 57 Report #: [id number] noted before the bifurcation into the posterolateral and posterior descending artery. Left Ventriculography Left Ventriculography was not performed. Hemodynamics The aortic pressure is 153/57 mmHg with a mean of 92 mmHg. The left ventricular pressure is 145/10 mmHg with a mean of mmHg. The left ventricular end diastolic pressure is 14 mmHg. There was no gradient across the aortic valve upon pullback. Pullback from the left ventricle to the aorta revealed no gradient across the aortic valve. PCI Technique Lesion Anticoagulation was achieved with Heparin. Patient was preloaded with Plavix. Percutaneous coronary intervention was performed on the Distal 1/3 of the SVG graft to the OM. The lesion stenosis prior to intervention was 80% with LO 3 flow. A 6F LCB 100CM Guide Catheter was used to engage the SVG ostium. A IG: BMW 190cm Interventional Guidewire was used to cross the lesion. STENT DEPLOYMENT A drug-eluting stent Sohail RX Stent 4.0X18mm was inserted and inflated up to 18.00atm for 17seconds. Repeat angiography revealed the following post-stent deployment results: 0% stenosis. Additional Inflation: 20.00atm for 15seconds. Additional Inflation: 20.00atm for 10seconds. Final angiography reveals 0 % stenosis with LO 3 flow. PCI Technique Lesion 2 Percutaneous Coronary Intervention was performed on the SVG to the first marginal artery. Patient was preloaded with Plavix. Percutaneous coronary intervention was performed on the SVG to the first marginal artery. The lesion stenosis prior to intervention was 80% with LO 3 flow. A 6 fr left SVG Guide Catheter was used to engage the svg ostium. A bmw Interventional Guidewire was used to cross the lesion. Stent Deployment A drug-eluting stent [place] RX Stent 4.5X15mm was inserted and inflated up to 16.00atm for 15seconds. Repeat angiography revealed the following post-stent deployment results: 0% stenosis. Additional Inflation: 18.00atm for 11seconds. Additional Inflation: 20.00atm for [address] [address] CARDIAC CATH REPORT Name: CAMILO FARIA [id number] Admission: 11/04/20 Attend Phys: Redd Bledsoe MD, F Discharge: Date of : 57 Report #: [id number] 10seconds. Final angiography reveals 0 % stenosis with LO 3 flow. Conclusion 1. Chronic occlusion of the lad and circumflex artery. 2. 80% stenosis noted of the distal RCA 3. Patent HUITRON graft to the LAD 4. SVG to the first marginal artery had an ostial 80% stenosis, and an 80% stenosis noted distally. 5. successful placement of drug eluting stents in the distal portion of SVG to the circumflex artery, and in its ostium. Recommendations Smoking Cessation <ELECTRONICALLY SIGNED> By: Redd Bledsoe MD, FACC 11/04/20 1342 1342 1342Dsilvana Bledsoe MD, FACC /INF
--- NOTE | 2020-11-04 15:14 | NUR ---
FEMORAL SHEATH 6 FR WAS PULLED BY CARDIOVASCULAR RIFLE CASE REPAIRER NICOLE AT 1510.
--- NOTE | 2020-11-04 18:56 | NUR ---
PT ADMITTED TO 202 POST CATH.PT HAD 2 SVG OM STENTS PLACED THROUGH RIGHT GROIN WITH SHEATH REMOVED POST PROCEDURE.DRESSING CDI. SENSATION INTACT. RIGHT PEDAL PULSE +1.BEDREST COMPLETE AT 0000.NOTHING FURTHER.CLWR.WCTM
[2020-11-05] VITALS: BP 169/73
[2020-11-05 03:37] LABS: HEMATOCRIT 30.1 % (42.0-52.0); HEMOGLOBIN 10.3 gm/dL (14.0-18.0); MCH 33.9 pg (26.0-34.0); MCHC 34.2 g/dL (28.0-37.0); MCV 99.2 fL (80.0-100.0); MPV 9.4 fl. (7.2-11.1); RBC 3.04 mil/uL (4.50-6.00); RDW-CV 13.9 % (10.5-14.5); WBC 7.9 thou/uL (4.0-11.0)
[2020-11-05 04:00] VITALS: BP 171/72
[2020-11-05 04:06] LABS: CALCIUM 7.8 mg/dL (8.5-10.1); CREATININE 2.8 mg/dL (0.6-1.3); POTASSIUM 4.8 mmol/L (3.5-5.1)
[2020-11-05 04:08] LABS: TROPONIN-I LEVEL 0.96 ng/mL (<0.06)
--- NOTE | 2020-11-05 05:46 | NUR ---
PT SLEPT MOST OF SHIFT. ASSESSMENT DOCUMENTED. MEDS GIVEN PER E-OCT. IV PATENT. NO REPORTS OF PAIN. PTS CATH SITE REMAINED C/D/I, NO EVIDENCE OF HEMATOMA. FALL PRECAUTIONS IN PLACE. PT ABLE TO MAKE NEEDS KNOWN.
[2020-11-05 08:00] VITALS: BP 176/79
--- NOTE | 2020-11-05 09:47 | NUR ---
Nutrition: Pt admitted for heart cath, stents x2. Assessed d/t low BMI. Weight is at pt's usual, ~123#. Heart healthy diet is ordered. H/o CAD, HTN, smoking. Alb 3, BG 117. Meds reviewed. No nutrition interventions needed at this time. Encourage good meal intake. If intake <75%, oral supplements are available. Will follow up per protocol. Mild risk. F/u on po intake, wt 11/09/20.
--- NOTE | 2020-11-05 09:58 | EKG ---
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
--- NOTE | 2020-11-05 10:03 | EKG ---
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 /EPI
[2020-11-05 10:41] VITALS: BP 176/79
--- NOTE | 2020-11-05 11:54 | NUR ---
RECEIVED REPORT AROUND 0715. ASSUMED CARE. VS AND ASSESSMENT CHARTED. IV INTACT RIGHT FOREARM. HEART MONITOR ATTACHED AT SB. PT LYING IN BED. ABLE TO BE UP ADLIB THIS AM. RECEIVED DISCHARGE ORDERS. MEDS GIVEN PER OCT. HOURLY ROUNDING PERFORMED. IV TAKEN OUT. HEART MONITOR OFF. DISCHARGE PACKET GIVEN TO PT. COMMUNICATED UNDERSTANDING. PT LEFT UNIT VIA WHEEL CHAIR WITH NURSING STAFF AND ALL BELONGINGS AT 1110.
== END 2020-11-05 11:10 | disposition home or self-care (01) ==
LOC: M.CL 08:51 → M.TBA-CV 13:47 → M.2W 16:11
PROVIDERS: ADMIT Internal Medicine Cardiovascular Disease; ATTEND Internal Medicine Cardiovascular Disease
DX: I25.118 Atherosclerotic heart disease of native coronary artery with other forms of angina pectoris (principal); I12.9 Hypertensive chronic kidney disease with stage 1 through stage 4 chronic kidney disease, or unspecified chronic kidney disease; N18.9 Chronic kidney disease, unspecified; I73.9 Peripheral vascular disease, unspecified; I63.9 Cerebral infarction, unspecified; J44.9 Chronic obstructive pulmonary disease, unspecified; F17.200 Nicotine dependence, unspecified, uncomplicated; Z79.82 Long term (current) use of aspirin; Z79.899 Other long term (current) drug therapy; Z20.822 Contact with and (suspected) exposure to COVID-19